=== PATIENT | female | born 1965 | race Caucasian/White ===

== ENCOUNTER → 2021-07-06 08:26 | Outpatient (BNVA) | payer MEDICARE, MEDICAID, SELFPAY | PROVIDERS: PCP Internal Medicine; Visit Provider Hospitalist | DX: J45.40 Moderate persistent asthma, uncomplicated (principal); J98.4 Other disorders of lung; G47.33 Obstructive sleep apnea (adult) (pediatric); R07.1 Chest pain on breathing | CPT/HCPCS: 99202 ==

== ENCOUNTER 2021-07-13 07:31 | Outpatient (REF) | payer MEDICARE, MEDICAID, SELFPAY ==
--- NOTE | ~2021-07-13 | CT_ITS ---
EXAMINATION: CT CHEST WITHOUT CONTRAST CLINICAL INFORMATION: Obstructive sleep apnea COMPARISON: None TECHNIQUE: Multidetector volumetric CT imaging of the chest was done. Axial MIP volume rendering provided. Sagittal and coronal reformatted images were obtained. This CT examination was performed using dose optimization techniques as appropriate, variously including the following: *Automated exposure control *Adjustment of mA and/or kV according to patient size (this includes techniques or standardized protocols for targeted exams where dose is matched to indication/reason for exam; i.e. 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 There is scarring or subsegmental atelectasis in the lateral right lower lobe. There is denser atelectasis or consolidation in the medial right lower lobe adjacent to the spine. There is focal bronchiectasis seen in this region as well. Superiorly there is a 1.2 x 1.9 cm cystic area questionable for cavity formation. This whole area measures approximately 5.2 x 2.2 cm in AP and transverse dimension and 7 cm in longitudinal dimension. Infectious, inflammatory and neoplastic processes should be considered. Comparison with old exams if available is recommended. Otherwise short-term follow-up exam following treatment should be considered. The lungs are otherwise clear. No pulmonary nodule is seen. MEDIASTINUM: There is a small calcification in the left lobe of the thyroid gland. The mediastinum is otherwise normal. PLEURA: There is no pleural effusion. No pleural mass or thickening. AXILLA: No lymphadenopathy. UPPER ABDOMEN: The liver is upper normal in size. The liver is low in attenuation suggestive of fatty infiltration. The gallbladder has been removed. There may be a tiny left renal stone. OSSEOUS STRUCTURES: There are degenerative changes of the spine. CT/CT chest wo con IMPRESSION: Consolidation or atelectasis in the medial segment of the right lower lobe, focal bronchiectasis and question superior cavity formation. Infectious, inflammatory and neoplastic processes should be considered. Comparison with old exams outside exams if available is recommended. Otherwise short-term chest CT follow-up following treatment would be recommended. Scarring or subsegmental atelectasis in the anterior segment of the right upper lobe and lateral segment of the right lower lobe. Fleischner guidelines were followed.
== END 2021-07-13 07:32 | disposition home or self-care (01) ==
LOC: HO.CT 07:31
PROVIDERS: Visit Provider Hospitalist
DX: R07.9 Chest pain, unspecified (principal); J98.4 Other disorders of lung; G47.33 Obstructive sleep apnea (adult) (pediatric)
CPT/HCPCS: 71250

== ENCOUNTER → 2021-07-27 08:57 | Outpatient (REF) | payer MEDICARE, MEDICAID, SELFPAY | LOC: HO.SL 08:57 | PROVIDERS: Visit Provider Hospitalist | DX: G47.33 Obstructive sleep apnea (adult) (pediatric) (principal); J98.4 Other disorders of lung; R07.9 Chest pain, unspecified | CPT/HCPCS: 95806 ==

== ENCOUNTER → 2021-09-02 08:51 | Outpatient (BNVA) | payer MEDICARE, MEDICAID, SELFPAY | PROVIDERS: PCP Internal Medicine; Visit Provider Hospitalist | DX: Z13.89 Encounter for screening for other disorder (principal) ==

== ENCOUNTER 2021-12-01 09:32 | Outpatient (REF) | payer MEDICARE, MEDICAID, SELFPAY ==
[2021-12-01 10:04] LABS: MANUAL DIFF FLAG NO
[2021-12-01 10:30] LABS: Basophils Absolute Auto 0.1 X10*3/uL (0.0-0.2); Eosinophils Absolute Auto 0.8 X10*3/uL (0.0-0.4); Eosinophils Percent Auto 11.6 % (0-4); Hematocrit 38.8 % (37.0-47.0); Imm Gran Abs Auto 0.02 X10*3/uL (0.00-0.03); Imm Gran Pct Auto 0.3 % (0.0-0.4); Lymphocytes Absolute Auto 1.9 X10*3/uL (1.2-4.9); Lymphocytes Percent Auto 26.2 % (20-40); Mean Corpuscular HGB Conc 33.5 g/dl (31.0-35.0); Mean Corpuscular Hemoglobin 26.1 pg (27.0-33.0); Mean Corpuscular Volume 77.8 fL (80.0-98.0); Mean Platelet Volume 12.2 fL (9.4-12.3); Monocytes Absolute Auto 0.6 X10*3/uL (0.1-1.2); Monocytes Percent Auto 7.8 % (2-11); Neutrophils Absolute Auto 3.8 x10*3/uL (2.0-8.3); Neutrophils Percent Auto 53.1 % (45-73); Platelet Count 188 X10*3/uL (160-400); Red Blood Count 4.99 X10*6/uL (4.20-5.50); Red Cell Distribution Width 14.5 % (11.0-16.0); White Blood Count 7.2 X10*3/uL (4.8-10.8)
[2021-12-01 11:03] LABS: B Type Natriuretic Peptide 39 pg/mL (<100)
[2021-12-01 11:25] LABS: Erythrocyte Sedimentation Rate 22 MM/HR (0-20)
[2021-12-03 14:31] LABS: IgA 301 mg/dL (47-310); IgG 1610 mg/dL (600-1640); IgM 91 mg/dL (50-300)
[2021-12-05 14:56] LABS: Immunoglobulin G Subclass 1 1088 mg/dL (382-929); Immunoglobulin G Subclass 2 147 mg/dL (241-700); Immunoglobulin G Subclass 3 106 mg/dL (22-178); Immunoglobulin G Subclass 4 30.4 mg/dL (4-86); Immunoglobulin G Total 1525 mg/dL (600-1640)
[2021-12-06 09:32] LABS: Anti Nuclear Antibody Screen NEGATIVE (NEGATIVE)
== END 2021-12-01 09:33 | disposition home or self-care (01) ==
LOC: HO.LAB 09:32
PROVIDERS: Visit Provider Hospitalist
DX: J45.40 Moderate persistent asthma, uncomplicated (principal); J98.4 Other disorders of lung; R07.1 Chest pain on breathing; G47.33 Obstructive sleep apnea (adult) (pediatric); Z79.899 Other long term (current) drug therapy
CPT/HCPCS: 36415; 82784; 82785; 83880; 85025; 85652; 86003; 86038; 86039; 99212

== ENCOUNTER 2022-04-21 10:55 | Outpatient (REF) | payer MEDICARE, MEDICAID, SELFPAY ==
--- NOTE | ~2022-04-21 | XR_ITS ---
EXAMINATION: XR CHEST CLINICAL INFORMATION: Back pain COMPARISON: Previous chest CT June 2021 TECHNIQUE: 2 views of the chest were obtained. FINDINGS: No significant abnormality is noted involving the heart, lungs, mediastinum, bony thorax or soft tissues. There are degenerative changes of the spine. XR/XR chest 2V IMPRESSION: Degenerative changes of the spine.
== END 2022-04-21 10:56 | disposition home or self-care (01) ==
LOC: HO.XRAY 10:55
PROVIDERS: Visit Provider Hospitalist
DX: M54.9 Dorsalgia, unspecified (principal); J98.4 Other disorders of lung; G47.33 Obstructive sleep apnea (adult) (pediatric); J45.40 Moderate persistent asthma, uncomplicated
CPT/HCPCS: 71046; 99212

== ENCOUNTER 2022-10-18 13:06 | Outpatient (REF) | payer OTHER, SELFPAY ==
--- NOTE | ~2022-10-18 | XR_ITS ---
EXAMINATION: XR THORACOLUMBAR SPINE CLINICAL INFORMATION: Dorsalgia. COMPARISON: Selected images of the chest CT of 07/13/2021 TECHNIQUE: 3 views of the thoracic spine; AP, lateral and swimmer's views were obtained. FINDINGS: Vertebral body heights and alignment are maintained. Mild narrowing of the intervertebral disc spaces is seen at multiple levels. Changes of diffuse idiopathic skeletal hyperostosis are noted. There is no evidence of suspicious lytic or blastic osseous lesions. Paraspinous soft tissues are unremarkable. Visualized lungs are clear. Post cholecystectomy surgical clips in the right upper abdominal quadrant are noted. XR/XR thoracic spine 2V IMPRESSION: No evidence of acute compression fracture or suspicious osseous lesion. Diffuse idiopathic skeletal hyperostosis.
== END 2022-10-18 13:07 | disposition home or self-care (01) ==
LOC: HO.XRAY 13:06
PROVIDERS: PCP Internal Medicine; Visit Provider Nurse Practitioner Family
DX: R07.89 Other chest pain (principal); J45.909 Unspecified asthma, uncomplicated; M54.9 Dorsalgia, unspecified; Z79.899 Other long term (current) drug therapy
CPT/HCPCS: 72070; 99212

== ENCOUNTER → 2022-11-22 09:03 | Outpatient (BNVA) | payer OTHER, MEDICAID, SELFPAY | PROVIDERS: Visit Provider Hospitalist | DX: J98.4 Other disorders of lung (principal); J45.40 Moderate persistent asthma, uncomplicated; G47.33 Obstructive sleep apnea (adult) (pediatric); M54.9 Dorsalgia, unspecified; B20 Human immunodeficiency virus [HIV] disease; Z79.84 Long term (current) use of oral hypoglycemic drugs; Z79.899 Other long term (current) drug therapy | CPT/HCPCS: 99212 ==

== ENCOUNTER 2023-01-09 09:06 | Outpatient (REF) | payer OTHER, SELFPAY ==
--- NOTE | ~2023-01-09 | CT_ITS ---
EXAMINATION: CT CHEST WITHOUT CONTRAST CLINICAL INFORMATION: Other disorder of lung COMPARISON: Previous chest x-ray April [address] June 2021 TECHNIQUE: Multidetector volumetric CT imaging of the chest was done. Axial MIP volume rendering provided. Sagittal and coronal reformatted images were obtained. This CT examination was performed using dose optimization techniques as appropriate, variously including the following: *Automated exposure control *Adjustment of mA and/or kV according to patient size (this includes techniques or standardized protocols for targeted exams where dose is matched to indication/reason for exam; i.e. extremities or head) *Use of iterative reconstruction technique DLP: 189 mGy-cm FINDINGS: LUNGS: There is a focal bronchiectasis seen in the posterior medial right lower lobe adjacent to the spine and surrounding consolidation. There is a superior cavitary component measuring 1 x 2.3 cm in transverse and AP dimension and 2.5 cm in longitudinal dimension that appears unchanged. There is question of solid component or focal wall thickening of the inferior wall of the cavity. The the superior cavitary component and question focal wall thickening or solid component inferiorly appears increased from previous June 2021 exam. There is bronchiectasis seen in the right lower lobe. There is scarring or chronic subsegmental atelectasis seen in the anterior right upper lobe and right lower lobe. The left lung is clear. MEDIASTINUM: Small stable left thyroid gland calcification. No imaging follow-up recommended. Normal mediastinum. CORONARY ARTERY CALCIFICATION: None visualized on this study. PLEURA: There is no pleural effusion. No pleural mass or thickening. AXILLA: No lymphadenopathy. UPPER ABDOMEN: Question mild fatty infiltration of the liver. Cholecystectomy. OSSEOUS STRUCTURES: Degenerative changes of the spine. CT/CT chest wo IV con IMPRESSION: Focal bronchiectasis and surrounding consolidation in the posterior medial right lower lobe adjacent to the spine. There is a superior cavitary component measuring 1 x 2.3 x 2.5 cm. There is question of solid component or focal wall thickening of the inferior wall of the cavity that appears increased from previous June 2021 exam. Otherwise this does not appear appreciably changed. Pulmonary sequestration, infectious/inflammatory process is favored over neoplastic process. Scarring or chronic subsegmental atelectasis in the anterior right upper lobe and right lower lobe. Fleischner guidelines were followed.
== END 2023-01-09 09:07 | disposition home or self-care (01) ==
LOC: HO.CT 09:06
PROVIDERS: PCP Internal Medicine; Visit Provider Hospitalist
DX: J98.4 Other disorders of lung (principal)
CPT/HCPCS: 71250

== ENCOUNTER 2023-03-14 10:35 | Outpatient (AMB) | payer OTHER, SELFPAY ==
[2023-03-14 10:56] VITALS: BP 120/70; PULSE 91; O2SAT 96; BMI 33.3
--- NOTE | 2023-03-14 10:56 | A.OFFVIS_ITS ---
Intake Vital Signs 03/14/23 10:56 Height 5 ft 4 in Weight 194 lb BMI 33.3 BP 120/70 Blood Pressure Location Lt brachial Position Sitting Pulse 91 Pulse Source Pulse Oximeter Pulse Oximetry (%) 96 Oxygen Delivery Method Room Air Intake Visit Reasons: asthma Slate Splitter Required: No Allergies sulfamethoxazole [From Bactrim] Allergy (Severe, Verified 03/14/23 10:58) Rash trimethoprim [From Bactrim] Allergy (Severe, Verified 03/14/23 10:58) Rash HPI HPI Comments History of Present Illness Details The patient is a 57-year-old woman with a known history of HIV who initially was diagnosed approximately about 8 years ago when she developed an 8 the finding illness. She was admitted with PCP. Subsequently after that she developed a cavitary lesion bronchoscopy specimens positive for aspergillosis. She was treated with antifungal therapy. However, she started developing right- sided pleuritic chest discomfort. The discomfort has been getting worse. She has been coughing up also more phlegm. It has been very uncomfortable for her. She has not been able to sleep because of the discomfort. Her last CT scan of the chest which was done at [facility] was back in April 2020 which was noted to have to cavitary lesions. In the meantime she continues on the antiviral therapy. Her HIV has been stable on the therapy. Still the possibility of a localized aspergilloma or chronic cavitary pulmonary aspergillosis are both in the differential. Therefore will repeat her CT scan of the chest with the plan of performing a bronchoscopy to further evaluate the area. And in the meantime she does have daytime drowsiness. The patient has been waking up with PT. Her daytime drowsiness has been getting worse. Her [place] score is 11/24. She does have episodes of waking up short of breath documented by her . The patient has gained weight. The patient needs to have a home sleep study. 12/01/2021 the patient is here for a pulmonary follow-up visit. Since we last spoke she started developing worsening cough with chest congestion. Moderate severity. Ultimately started developing worsening pleuritic discomfort on the right side. moderate severity. She did undergo a CT scan of the chest which we personally reviewed together she does have a cavitary lesion in the right lower lobe. Although we also looked at a CT scan from previous history from [facility]. It appears the cavities actually smaller in size. It does have a pleural component which could be resulting in the pleuritic discomfort. Explained to the patient that this cavity can be easily infected and ultimately resulted in discomfort. In view of the cavity being smaller will go ahead and treated with antibiotics to see if there is improvement. However, there was no significant improvement of her symptoms then a bronchoscopy may be warranted to assess for persistent or compromising organisms. in the meantime the patient continues to have daytime drowsiness. Her [place] score is 8/24. We did review her sleep study. It appears that she does have mild sleep apnea. Appears that is mainly when sleeping on her back. Therefore she will try positional therapy at this time. If the patient does not have any significant improvement with positional therapy then we can consider PAP therapy. The patient continues with respiratory therapy. Although, she continues to be symptomatic. She does require her short-acting beta agonist on a daily basis. Will go ahead and optimize respiratory therapy to Trelegy inhaler. I am hopeful that to triple therapy will be more effective for her. 04/21/2022 the patient is here for a pulmonary follow-up visit. The patient has been complaining of excruciating right-sided back pain. The patient almost went to the ER because it was so uncomfortable. There is no pleuritic component. The patient does have reproducible to back discomfort. We did review her CT scan of the chest that she had recently demonstrating is stable cavitary area in the medial aspect of her right lung. This is not in the distribution of her pain wound is extremely unlikely to be the cause of her significant back pain. It is likely musculoskeletal or neuropathic since the pain is reproducible upon palpation. She did see her primary care doctor. At this point I will treated for musculoskeletal discomfort. However, the patient needs to follow-up with primary care and continue to evaluate for other non pulmonary etiologies for her back pain. Based on the CT scan is reassuring that her previous large cavitary lesion has been slowly closing and now with some residual disease. The patient denies any cough denies any productive phlegm. She is breathing well without any complaints except for the back issues. 11/22/2022 the patient is here for pulmonary follow-up visit. She is overall doing better. The right-sided discomfort appears to be little better. Still uncomfortable. She did undergo chest x-rays and also spine x-rays to without any significant findings. Previous CT scans demonstrated a cavitary lesion. In view of the persistent symptoms will go ahead and request a CT scan of the chest. The patient is using her respiratory therapy with good effect. She still have wheezing at times. She is on optimize respiratory therapy therefore will continue her current regimen at this time. 03/14/2023 the patient is here for a pul monary follow-up visit. She was feeling well until recently she started developing again a worsening cough chest tightness and also right-sided chest his cane. The pain is moderate to severe. Significant pleuritic component. She did have a CT scan of the chest in December which I reviewed with her. It appears that the thick wall cavity is a little bit more filled then suggesting some growth. Is hard to know if the pain is related to that area or if the cough is related to that area at this time. Her HIV has been stable. Will plan to treated with antibiotics and also treat her asthma exacerbation with some prednisone. Will re-evaluate the cystic thick wall cavity area with a IV contrast CT scan to rule out sequestration. Will follow-up after her CT scan [facility] Medical History (Updated 10/18/22 @ 13:41 by Lindsay Borrego NP) Asthma-COPD overlap syndrome Asthma HIV (human immunodeficiency virus infection) Chest pain Cavitary lesion of lung RAMESH (obstructive sleep apnea) Social History (Updated 07/06/21 @ 08:37 by Rocío Wesley [facility]) Patient Tobacco Use Status: Never used Tobacco Review of Systems Const Reports daytime sleepiness, Reports fatigue, Reports snoring, Reports stops breathing during sleep and Reports weight gain Eyes Denies change in vision ENT Denies change in voice, Reports nasal congestion and Reports nasal discharge Card Denies palpitations and Reports dyspnea on exertion Resp Reports chest congestion, Reports cough, Denies hemoptysis, Reports pain on inspiration, Reports pain with cough, Reports dyspnea on exertion, Reports snoring and Reports wheezing GI Reports no additional complaints Musc Reports back pain Skin/Breast Denies rash Neuro Reports no additional complaints Endo Reports fatigue and Denies palpitations Aller/Immun Reports wheezing Physical Exam Vital Signs: Last Vital Signs Pulse 91 03/14/23 10:56 BP 120/70 03/14/23 10:56 Pulse Ox 96 03/14/23 10:56 Oxygen Delivery Method Room Air 03/14/23 10:56 BMI result Body Mass Index 33.3 Const General: alert Neck Neck: Yes normal visual inspection, Yes full ROM and Yes no lymphadenopathy Chest Chest palpation & inspection: normal inspection of the chest Resp Auscultation: wheezes and diminished lung sounds Cardio Rate: regular rate Rhythm: regular rhythm Heart sounds: S1 normal heart sound present and S2 normal heart sound present GI Palpation (GI): Soft to palpation and nontender Auscultation: normal bowel sounds General: Yes CVA tenderness Back/Spine/Pelvis Back: CVA tenderness, No erythema, No warmth, No sacral edema and back tenderness Skin General skin exam: rashes and/or lesions noted Assessment & Plan Assessment & Plan (1) Cavitary lesion of lung: Code(s): J98.4 - Other disorders of lung (2) RAMESH (obstructive sleep apnea): Code(s): G47.33 - Obstructive sleep apnea (adult) (pediatric) (3) Asthma: Code(s): J45.909 - Unspecified asthma, uncomplicated Qualifiers: Asthma complication type: uncomplicated Asthma persistence: persistent Asthma severity: moderate Qualified Code(s): J45.40 - Moderate persistent asthma, uncomplicated Plan start Augmentin Start Prednisone tylenol#3 for pain as needed positional therapy for mild RAMESH, COnsider PAP therapy if no better continue Trelegy short-acting beta agonist as needed pain control Repeat CT scan of the chest to reassess cavitary lesion and ongoing discomfort with IV contrast to r/o sequestration. If still abnormal will consider bronchoscopy follow-up in 2 months Orders: Orders CT chest w IV con 4 Weeks J98.4 - Other disorders of lung Complete Blood Count Auto Diff Today J98.4 - Other disorders of lung Erythrocyte Sedimentation Rate Today J98.4 - Other disorders of lung Basic Metabolic Panel Today J98.4 - Other disorders of lung Medications: New amoxicillin-pot clavulanate 875-125 mg 1 tab PO BID 10 days 20 tabs 0RF acetaminophen-codeine 300-15 mg 1 tab PO Q8H 10 days PRN 30 tabs 0RF pain prednisone PO daily; Take 3 tab daily x 4 days, then 2 tabs daily x 4 days, then 1 tab daily x 4 day 12 days 24 tabs 0RF Refilled lidocaine 5% (Lidoderm) leave on most painful area for up to 12 hrs 1 patch topical DAILY 30 days 30 ea 4RF B02.29 - Other postherpetic nervous system involvement Coding Level of Care Code Est Pt Level 4 (43675) Diagnoses Cavitary lesion of lung J98.4 RAMESH (obstructive sleep apnea) G47.33 Moderate persistent asthma without complication J45.40 Asthma complication type: uncomplicated Asthma persistence: persistent Asthma severity: moderate Time Spent (min) 17
== END 2023-03-14 11:16 | disposition home or self-care (01) ==
PROVIDERS: PCP Internal Medicine; Visit Provider Hospitalist
DX: J98.4 Other disorders of lung (principal); G47.33 Obstructive sleep apnea (adult) (pediatric); J45.40 Moderate persistent asthma, uncomplicated
CPT/HCPCS: 99214

== ENCOUNTER → 2023-03-14 10:35 | Outpatient (BNVA) | payer OTHER, SELFPAY | PROVIDERS: PCP Internal Medicine; Visit Provider Hospitalist | DX: J45.40 Moderate persistent asthma, uncomplicated (principal); J98.4 Other disorders of lung; G47.33 Obstructive sleep apnea (adult) (pediatric) | CPT/HCPCS: 99212 ==

== ENCOUNTER 2023-04-09 12:52 | Outpatient (REF) | payer OTHER, SELFPAY ==
--- NOTE | ~2023-04-09 | XR_ITS ---
EXAMINATION: XR cervical spine 3V CLINICAL INFORMATION: Pain COMPARISON: None TECHNIQUE: 4 views of the cervical spine were obtained. FINDINGS: The cervical spine is visualized to the level of C6-C7 on the lateral view. Reversal of the usual cervical spine lordosis centered at C5-C6 Vertebral body heights are maintained. Lateral masses of C1 are well aligned on C2. Visualized portion of the dens is intact. Moderate degenerative disc disease at C5-C6 and, manifested by loss of disc space height and anterior disc osteophyte complex is multilevel facet arthropathy.. No prevertebral soft tissue swelling. XR/XR cervical spine 3V IMPRESSION: Moderate spondylosis of the cervical spine, as above detailed, with reversal of the usual cervical spine lordosis centered at C5-C6.
--- NOTE | ~2023-04-09 | XR_ITS ---
EXAMINATION: XR LUMBOSACRAL SPINE CLINICAL INFORMATION: Reason for Exam M48.10 - Ankylosing hyperostosis [[place]], site unspecified COMPARISON: None TECHNIQUE: 3 views of the lumbar spine FINDINGS: 5 nonrib-bearing lumbar-type vertebral bodies. Vertebral body heights are maintained. Minimal grade 1 anterolisthesis of L4 on L5. Mild multilevel degenerative disc disease with loss of disc space height with facet arthropathy and anterior disc osteophyte complexes. Upper abdominal surgical clips. XR/XR lumbar spine 2-3V IMPRESSION: 1. Mild multilevel degenerative disc disease with loss of disc space height with facet arthropathy and anterior disc osteophyte complexes. 2. Minimal grade 1 anterolisthesis of L4 on L5.
== END 2023-04-09 12:53 | disposition home or self-care (01) ==
LOC: HO.XRAY 12:52
PROVIDERS: PCP Internal Medicine; Visit Provider Nurse Practitioner Family
DX: M48.10 Ankylosing hyperostosis [Forestier], site unspecified (principal); R13.10 Dysphagia, unspecified; M54.9 Dorsalgia, unspecified
CPT/HCPCS: 72040; 72100; 99202

== ENCOUNTER 2023-04-09 12:52 | Outpatient (AMB) | payer OTHER, SELFPAY ==
--- NOTE | 2023-04-09 12:57 | A.OFFVIS_ITS ---
Intake Vital Signs 04/09/23 13:01 Height 5 ft 4 in Weight 187 lb BMI 32.1 BP 120/72 Blood Pressure Location Rt brachial Position Sitting Pulse 68 Pulse Source Pulse Oximeter Pulse Oximetry (%) 98 Oxygen Delivery Method Room Air Intake Visit Reasons: Dosalgia, unspecified & Myalgia other site/conf.ir Intake Note: Pain today 0/10 Clerk Of Scales Required: No Accompanied by: Self / Same As Patient Allergies sulfamethoxazole [From Bactrim] Allergy (Severe, Verified 04/09/23 13:01) Rash trimethoprim [From Bactrim] Allergy (Severe, Verified 04/09/23 13:01) Rash HPI Dosalgia, unspecified & Myalgia other site/conf.ir HPI Details Patient is a pleasant 58 years old female with history of post herpetic neuralgia, RAMESH, HIV and aspergillosis on antiviral therapy, asthma, COPD presents today for initial evaluation of mid thoracic pain. She was referred to us by our Pulmonology providers. Patient reports no pain today and has been pain free for about one week. Patient reports Tylenol #3 short script and lidocaine patches have been helpful to her. Her main concern today is difficulty swallowing, worse at nighttime and swallowing her food or taking medication. She reports this has been going on for a while and that she takes medication for this which she cannot recall. Recent thoracic xray and CT scan of chest showed diffuse idiopathic skeletal hyperostosis (DISH) and degenerative changes of the spine. I have informed patient that DISH is a debilitating musculoskeletal disease with no cure at this time and can cause severe pain.?She denies being seen by Rheumatology before. Patient reports she was diagnosed with RAMESH last year but does not have CPAP machine. She will follow up with Pulmonology to get re-evaluation for this as this might help her dysphagia symptoms, especially at night time. Denies fever, weight loss, chest pain, rash, skin discoloration, shortness of breath, pain on inspiration or expiration, dizziness or productive cough, numbness, tingling, burning, weakness, gait imbalances, bladder or bowel dysfunction or saddle anesthesia. Location Mid thoracic pain, right side Duration Since 2013 Characteristics of symptom or complaint Intermittent aching and throbbing Aggravating or associated factors None Relieving factors Tylenol #3 and Lidocaine patches Treatment None PFSH Medical History Vitamin D deficiency Diabetes GERD (gastroesophageal reflux disease) Anemia Depression Asthma-COPD overlap syndrome Asthma HIV (human immunodeficiency virus infection) Chest pain Cavitary lesion of lung RAMESH (obstructive sleep apnea) Social History Patient Tobacco Use Status: Never used Tobacco Review of Systems Const All systems reviewed & are unremarkable except as noted in HPI and below Reports as per HPI, Denies body aches, Denies chills, Denies difficulty sleeping, Reports fatigue, Denies fever(s), Denies malaise, Denies night sweats, Reports snoring, Denies weakness and Denies weight loss ENT Reports dysphagia and Reports odynophagia Card Denies dyspnea on exertion Resp Denies cough, Denies hemoptysis, Denies pain on inspiration, Denies pain with cough, Denies dyspnea on exertion and Reports snoring GI Denies melena, Denies hematochezia, Denies constipation, Reports dysphagia, Reports heartburn, Denies fecal incontinence, Denies diarrhea, Denies nausea and Reports odynophagia Neuro Denies weakness Endo Reports fatigue Physical Exam Vital Signs: Last Vital Signs Pulse 68 04/09/23 13:01 BP 120/72 04/09/23 13:01 Pulse Ox 98 04/09/23 13:01 Oxygen Delivery Method Room Air 04/09/23 13:01 BMI result Body Mass Index 32.1 General: Appears afebrile. No acute distress. Alert and oriented. Mood and affect appropriate. Follows and participates in conversation appropriately. Respiratory effort is unlabored. No cough. Wears face mask. Able to transition from sit to stand unassisted. Ambulates with bilaterally normal heel strike and toe off. Back/Spine/Pelvis Other: No midline tenderness to palpation in the thoracic or lumbar spine. No paraspinal tenderness to palpation in the lumbar spine. Thoraco-lumbar extension and flexion does not reproduce pain. Cervical Spine: cervical ROM normal and No Cervical spine tenderness Thoracic/Lumbar Spine: thoracic and lumbar spine normal to inspection, No Thoracic/lumbar spine scar(s), thoraco-lumbar ROM normal, Lasegue's sign negative, straight leg raise negative bilaterally, No thoracic spinal tenderness and No lumbar spinal tenderness Pelvis: no buttock tenderness Sacroiliac joints: bilaterally nontender Results Reviewed Results Reviewed: CT/CT chest wo IV con 01/09/23 OSSEOUS STRUCTURES: Degenerative changes of the spine. IMPRESSION: Focal bronchiectasis and surrounding consolidation in the posterior medial right lower lobe adjacent to the spine. There is a superior cavitary component measuring 1 x 2.3 x 2.5 cm. There is question of solid component or focal wall thickening of the inferior wall of the cavity that appears increased from previous June 2021 exam. Otherwise this does not appear appreciably changed. Pulmonary sequestration, infectious/inflammatory process is favored over neoplastic process. Scarring or chronic subsegmental atelectasis in the anterior right upper lobe and right lower lobe. XR THORACOLUMBAR SPINE 10/18/22 CLINICAL INFORMATION: Dorsalgia. COMPARISON: Selected images of the chest CT of 07/13/2021 TECHNIQUE: 3 views of the thoracic spine; AP, lateral and swimmer's views were obtained. FINDINGS: Vertebral body heights and alignment are maintained. Mild narrowing of the intervertebral disc spaces is seen at multiple levels. Changes of diffuse idiopathic skeletal hyperostosis are noted. There is no evidence of suspicious lytic or blastic osseous lesions. Paraspinous soft tissues are unremarkable. Visualized lungs are clear. Post cholecystectomy surgical clips in the right upper abdominal quadrant are noted. IMPRESSION: No evidence of acute compression fracture or suspicious osseous lesion. Diffuse idiopathic skeletal hyperostosis. Assessment & Plan Assessment & Plan (1) DISH (diffuse idiopathic skeletal hyperostosis): Code(s): M48.10 - Ankylosing hyperostosis [[place]], site unspecified (2) Dysphagia: Code(s): R13.10 - Dysphagia, unspecified (3) Back pain: Code(s): M54.9 - Dorsalgia, unspecified Plan Patient presents today with unremarkable mid and lower back exam. Recent thoracic xray and CT scan of chest showed diffuse idiopathic skeletal hyperostosis (DISH) and degenerative changes of the spine. I have informed patient that DISH is a debilitating musculoskeletal disease with no cure at this time and can cause severe pain.?We will follow up on this with cervical and lower spine xrays. Consider Rheumatolody referral. Patient will continue to mon itor her symptoms and follow up with us when pain returns to discuss treatments. I encourage pateint to follow up with PCP and Pulmonology providers to further evaluate dysphagia and consider re-evaluation of RAMESH for potential CPAP machine. All questions and concerns have been answered and patient agreed with the plan. Follow up for xray results and sooner as needed. Orders: Orders XR lumbar spine 2-3V Today M48.10 - Ankylosing hyperostosis [[place]], site unspecified XR cervical spine 3V Today M48.10 - Ankylosing hyperostosis [[place]], site unspecified Coding Level of Care Code New Pt Level 4 (16117) Diagnoses DISH (diffuse idiopathic skeletal hyperostosis) M48.10 Dysphagia R13.10 Back pain M54.9
[2023-04-09 13:01] VITALS: BP 120/72; PULSE 68; O2SAT 98; BMI 32.1
== END 2023-04-09 13:57 | disposition home or self-care (01) ==
PROVIDERS: PCP Internal Medicine; Referring Provider Nurse Practitioner Family; Visit Provider Nurse Practitioner Family
DX: M48.10 Ankylosing hyperostosis [Forestier], site unspecified (principal); R13.10 Dysphagia, unspecified; M54.9 Dorsalgia, unspecified
CPT/HCPCS: 99204

== ENCOUNTER 2023-05-03 08:17 | Outpatient (REF) | payer OTHER, SELFPAY ==
--- NOTE | ~2023-05-03 | CT_ITS ---
EXAMINATION: CT CHEST WITH CONTRAST CLINICAL INFORMATION: Cavitary lesion of lung. COMPARISON: CT chest 01/09/2023. TECHNIQUE: Multidetector volumetric CT imaging of the chest was obtained after the administration of 65 mL of Omnipaque 350 intravenous contrast without immediate adverse reactions. Axial MIP volume rendering provided. Sagittal and coronal reformatted images were obtained. This CT examination was performed using dose optimization techniques as appropriate, variously including the following: *Automated exposure control *Adjustment of mA and/or kV according to patient size (this includes techniques or standardized protocols for targeted exams where dose is matched to indication/reason for exam; i.e. extremities or head) *Use of iterative reconstruction technique DLP: 129 mGy-cm FINDINGS: LUNGS: Again seen is bronchiectasis involving the right lower lobe with a superior cavitary component which has decreased in size since the prior study but has a new air-fluid level within it. Currently, this measures 2.5 x 1.3 cm whereas previously, this measured 2.9 x 1.5 cm (5:69 compare prior 5:215). The wall of the cavity is slightly thickened, unchanged from prior. An additional inferior paraspinal cavitary area is again noted which is unchanged measuring 2.0 x 1.1 cm (5:97 compare prior 5:311). No new lung masses are seen. MEDIASTINUM: The left lobe of the thyroid is mildly enlarged with nodules, some of which are calcified. Findings are unchanged when compared to the prior. The thoracic aorta appears unremarkable. Heart size is normal. No coronary calcium is seen. No mediastinal or hilar lymphadenopathy. PLEURA: There is no pleural effusion. AXILLA: No lymphadenopathy. UPPER ABDOMEN: Status post cholecystectomy. Hepatic steatosis is present. There is an unchanged 1 cm hypodensity seen just beneath the dome of the right hemidiaphragm that measures water density consistent with a cyst (5:106 compare prior 3:36). No adrenal masses are seen. OSSEOUS STRUCTURES: Mild degenerative changes are present in the spine. No bony destructive lesions. CT/CT chest w IV con IMPRESSION: 1. Right lower lobe bronchiectasis with cavitary lesions, as described above. The superior cavitary component has decreased in size but has a new air-fluid level within it. An additional inferior paraspinal cavitary area is unchanged. 2. Other incidental findings, as described above, including unchanged thyroid nodules, hepatic steatosis, cholecystectomy, and small benign hepatic cyst. Fleischner guidelines were followed.
[2023-05-03 08:44] LABS: MANUAL DIFF FLAG NO
[2023-05-03 09:04] LABS: Basophils Absolute Auto 0.1 X10*3/uL (0.0-0.2); Basophils Percent Auto 0.7 % (0-2); Eosinophils Absolute Auto 0.3 X10*3/uL (0.0-0.4); Eosinophils Percent Auto 3.8 % (0-4); Hematocrit 40.5 % (37.0-47.0); Hemoglobin 13.5 g/dl (12.0-16.0); Imm Gran Abs Auto 0.04 X10*3/uL (0.00-0.03); Imm Gran Pct Auto 0.5 % (0.0-0.4); Lymphocytes Absolute Auto 2.1 X10*3/uL (1.2-4.9); Lymphocytes Percent Auto 24.2 % (20-40); Mean Corpuscular HGB Conc 33.3 g/dl (31.0-35.0); Mean Corpuscular Hemoglobin 26.1 pg (27.0-33.0); Mean Corpuscular Volume 78.3 fL (80.0-98.0); Mean Platelet Volume 12.7 fL (9.4-12.3); Monocytes Absolute Auto 0.7 X10*3/uL (0.1-1.2); Monocytes Percent Auto 8.6 % (2-11); Neutrophils Absolute Auto 5.4 x10*3/uL (2.0-8.3); Neutrophils Percent Auto 62.2 % (45-73); Platelet Count 179 X10*3/uL (160-400); Red Blood Count 5.17 X10*6/uL (4.20-5.50); Red Cell Distribution Width 14.5 % (11.0-16.0); White Blood Count 8.6 X10*3/uL (4.8-10.8)
[2023-05-03 09:32] LABS: Anion Gap 11 (12-20); Blood Urea Nitrogen 13 mg/dL (9-16); Calcium 9.5 mg/dL (8.4-10.2); Carbon Dioxide 27 mmol/L (22-29); Chloride 105 mmol/L (96-108); Estimated Glomerular Filt Rate > 60; Glucose Random 179 mg/dL (60-115); Potassium 3.8 mmol/L (3.3-5.1); Sodium 139 mmol/L (135-145)
[2023-05-03 09:54] LABS: Erythrocyte Sedimentation Rate 28 MM/HR (0-20)
[2023-05-03] MEDS: iohexoL 350 MG/ML 100 ML INFUS..BTL IV (10:50)
== END 2023-05-03 08:18 | disposition home or self-care (01) ==
LOC: HO.CT 08:17
PROVIDERS: PCP Internal Medicine; Visit Provider Hospitalist
DX: J98.4 Other disorders of lung (principal)
CPT/HCPCS: 36415; 71260; 80048; 85025; 85652; Q9967

== ENCOUNTER 2024-08-25 14:31 | Outpatient (AMB) | payer OTHER, SELFPAY ==
[2024-08-25 14:34] VITALS: BP 140/82; PULSE 91; O2SAT 96; BMI 31.8
--- NOTE | 2024-08-25 14:34 | A.OFFVIS_ITS ---
Vital Signs 08/25/24 14:34 Height 5 ft 4 in Weight 185 lb 3.013 oz BMI 31.8 BP 140/82 H Blood Pressure Location Rt brachial Position Sitting Pulse 91 Pulse Source Pulse Oximeter Pulse Oximetry (%) 96 Oxygen Delivery Method Room Air Intake Visit Reasons: Asthma Allergies sulfamethoxazole [From Bactrim] Allergy (Severe, Verified 04/09/23 13:01) Rash trimethoprim [From Bactrim] Allergy (Severe, Verified 04/09/23 13:01) Rash HPI Comments Details: The patient is a 59-year-old woman with a known history of HIV who initially was diagnosed approximately about 8 years ago when she developed an 8 the finding illness. She was admitted with PCP. Subsequently after that she developed a cavitary lesion bronchoscopy specimens positive for aspergillosis. She was treated with antifungal therapy. However, she started developing right-sided pleuritic chest discomfort. The discomfort has been getting worse. She has been coughing up also more phlegm. It has been very uncomfortable for her. She has not been able to sleep because of the discomfort. Her last CT scan of the chest which was done at [facility] was back in April 2020 which was noted to have to cavitary lesions. In the meantime she continues on the antiviral therapy. Her HIV has been stable on the therapy. Still the possibility of a localized aspergilloma or chronic cavitary pulmonary aspergillosis are both in the differential. Therefore will repeat her CT scan of the chest with the plan of performing a bronchoscopy to further evaluate the area. And in the meantime she does have daytime drowsiness. The patient has been waking up with PT. Her daytime drowsiness has been getting worse. Her [place] score is 11/24. She does have episodes of waking up short of breath documented by her . The patient has gained weight. The patient needs to have a home sleep study. 12/01/2021 the patient is here for a pulmonary follow-up visit. Since we last spoke she started developing worsening cough with chest congestion. Moderate severity. Ultimately started developing worsening pleuritic discomfort on the right side. moderate severity. She did undergo a CT scan of the chest which we personally reviewed together she does have a cavitary lesion in the right lower lobe. Although we also looked at a CT scan from previous history from [facility]. It appears the cavities actually smaller in size. It does have a pleural component which could be resulting in the pleuritic discomfort. Explained to the patient that this cavity can be easily infected and ultimately resulted in discomfort. In view of the cavity being smaller will go ahead and treated with antibiotics to see if there is improvement. However, there was no significant improvement of her symptoms then a bronchoscopy may be warranted to assess for persistent or compromising organisms. in the meantime the patient continues to have daytime drowsiness. Her [place] score is 8/24. We did review her sleep study. It appears that she does have mild sleep apnea. Appears that is mainly when sleeping on her back. Therefore she will try positional therapy at this time. If the patient does not have any significant improvement with positional therapy then we can consider PAP therapy. The patient continues with respiratory therapy. Although, she continues to be symptomatic. She does require her short-acting beta agonist on a daily basis. Will go ahead and optimize respiratory therapy to Trelegy inhaler. I am hopeful that to triple therapy will be more effective for her. 04/21/2022 the patient is here for a pulmonary follow-up visit. The patient has been complaining of excruciating right-sided back pain. The patient almost went to the ER because it was so uncomfortable. There is no pleuritic component. The patient does have reproducible to back discomfort. We did review her CT scan of the chest that she had recently demonstrating is stable cavitary area in the medial aspect of her right lung. This is not in the distribution of her pain wound is extremely unlikely to be the cause of her significant back pain. It is likely musculoskeletal or neuropathic since the pain is reproducible upon palpation. She did see her primary care doctor. At this point I will treated for musculoskeletal discomfort. However, the patient needs to follow-up with primary care and continue to evaluate for other non pulmonary etiologies for her back pain. Based on the CT scan is reassuring that her previous large cavitary lesion has been slowly closing and now with some residual disease. The patient denies any cough denies any productive phlegm. She is breathing well without any complaints except for the back issues. 11/22/2022 the patient is here for pulmonary follow-up visit. She is overall doing better. The right-sided discomfort appears to be little better. Still uncomfortable. She did undergo chest x-rays and also spine x-rays to without any significant findings. Previous CT scans demonstrated a cavitary lesion. In view of the persistent symptoms will go ahead and request a CT scan of the c hest. The patient is using her respiratory therapy with good effect. She still have wheezing at times. She is on optimize respiratory therapy therefore will continue her current regimen at this time. 03/14/2023 the patient is here for a pulmonary follow-up visit. She was feeling well until recently she started developing again a worsening cough chest tightness and also right-sided chest his cane. The pain is moderate to severe. Significant pleuritic component. She did have a CT scan of the chest in December which I reviewed with her. It appears that the thick wall cavity is a little bit more filled then suggesting some growth. Is hard to know if the pain is related to that area or if the cough is related to that area at this time. Her HIV has been stable. Will plan to treated with antibiotics and also treat her asthma exacerbation with some prednisone. Will re-evaluate the cystic thick wall cavity area with a IV contrast CT scan to rule out sequestration. Will follow-up after her CT scan 08/25/2024 the patient is here for a pulmonary follow-up visit. The patient has been complaining of intermittent right-sided pain. Similar to the pleuritic pain that she has had for many years. But it seems to wax and wane. When it comes is very severe. She can barely breathe because of the severe pain. She did go to the ER back in June at [facility]. She apparently had a CT scan of the chest. I will request a report right now. The last CT scan we have available here is from 2022 where she had a CT scan demonstrating the cavitary lesion was present with some thickening rounded including the pleura likely resulting in the pleurisy. The patient has also gained some weight. She has diabetes now therefore we can not no longer give her high dose of the pre dnisone. She recently started on GLP1 receptor inhibitor. Hopefully this allows us to give a small dose of prednisone to help with the inflammation. Once we can review the CT scan we can see if additional interventions are required. [facility] Medical History Vitamin D deficiency Diabetes GERD (gastroesophageal reflux disease) Anemia Depression Asthma-COPD overlap syndrome Asthma HIV (human immunodeficiency virus infection) Chest pain Cavitary lesion of lung RAMESH (obstructive sleep apnea) Social History Patient Tobacco Use Status: Never used Tobacco Review of Systems Const Reports daytime sleepiness, Reports fatigue, Reports snoring, Reports stops breathing during sleep and Reports weight gain Eyes Denies change in vision ENT Denies change in voice, Reports nasal congestion and Reports nasal discharge Card Denies palpitations and Reports dyspnea on exertion Resp Reports chest congestion, Reports cough, Denies hemoptysis, Reports pain on inspiration, Reports pain with cough, Reports dyspnea on exertion, Reports snoring and Reports wheezing GI Reports no additional complaints Musc Reports back pain Skin/Breast Denies rash Neuro Reports no additional complaints Endo Reports fatigue and Denies palpitations Aller/Immun Reports wheezing Physical Exam Vital Signs: Last Vital Signs Pulse 91 08/25/24 14:34 BP 140/82 H 08/25/24 14:34 Pulse Ox 96 08/25/24 14:34 Oxygen Delivery Method Room Air 08/25/24 14:34 BMI result Body Mass Index 31.8 Const General: alert Neck Neck: Yes supple Chest Chest palpation & inspection: normal inspection of the chest Resp Auscultation: wheezes and diminished lung sounds Cardio Rate: regular rate Rhythm: regular rhythm Heart sounds: S1 normal heart sound present and S2 normal heart sound present GI Palpation (GI): Soft to palpation and nontender Auscultation: normal bowel sounds General: Yes CVA tenderness Back/Spine/Pelvis Back: CVA tenderness, No erythema, No warmth, No sacral edema and back tend erness Skin General skin exam: rashes and/or lesions noted Assessment & Plan Assessment & Plan (1) Cavitary lesion of lung: Code(s): J98.4 - Other disorders of lung Category: Medical (2) RAMESH (obstructive sleep apnea): Code(s): G47.33 - Obstructive sleep apnea (adult) (pediatric) Category: Medical (3) Asthma: Code(s): J45.909 - Unspecified asthma, uncomplicated Category: Medical Qualifiers: Asthma severity: moderate Asthma persistence: persistent Asthma complication type: uncomplicated Qualified Code(s): J45.40 - Moderate persistent asthma, uncomplicated Plan start Augmentin Start Prednisone tylenol#3 for pain as needed positional therapy for mild RAMESH, COnsider PAP therapy if no better continue Trelegy short-acting beta agonist as needed pain control Requesting CT chest from [facility], If still abnormal will consider bronchoscopy follow-up in 3-4 months Medications: New [id number]-[id number] 100-62.5-25 mcg (Trelegy Ellipta) 1 inh inhalation DAILY 60 ea 11RF 30 days J44.9 - Chronic obstructive pulmonary disease, unspecified acetaminophen-codeine 300-30 mg 1 tab PO Q8H PRN 30 tabs 0RF pain 10 days Changed From prednisone PO daily; Take 3 tab daily x 4 days, then 2 tabs daily x 4 days, then 1 tab daily x 4 day 12 days 24 tabs 0RF To prednisone PO daily; Take 2 tabs daily x 5 days, then 1 tab daily x 5 days 15 tabs 0RF 10 days From amoxicillin-pot clavulanate 875-125 mg 1 tab PO BID 10 days 20 tabs 0RF To amoxicillin-pot clavulanate 875-125 mg 1 tab PO BID 28 tabs 0RF 14 days Coding Level of Care Code Est Pt Level 4 (21386) Complex EM visit Add On G2211 Diagnoses Cavitary lesion of lung J98.4 RAMESH (obstructive sleep apnea) G47.33 Moderate persistent asthma without complication J45.40 Asthma severity: moderate Asthma persistence: persistent Asthma complication type: uncomplicated Time Spent (min) 18
--- OUTSIDE RECORDS SUMMARY | 2024-08-25 17:21 | XMS_ITS | Clinical Summary ---
Author Organization [facility] Address [address] [place] [address] Phone Care Team Providers Care Mining Captain Name Role Phone Simone Engle MD Primary Care Provider [phone] Allergies Active Allergy Reactions Criticality Noted Date Comments Sulfamethoxazole-Trimethoprim Rash 2024 Medications hydrocortisone 1 % topical cream Apply to affected area 2 times daily 15 g 5 05/24/19 26 Active naproxen (NAPROSYN) 500 mg tablet Take 1 tablet (500 mg total) by mouth 2 (two) times a day with meals for 15 days. 30 tablet 5 07/31/19 25 Encounters Date Type Department Care Team Description 07/15/2024 3:48 PM EST - 07/15/2024 7:58 PM EST Emergency [facility] Emergency [address] [place] [address] Pleuritic chest pain (Primary Dx); Pneumonia due to infectious organism, unspecified laterality, unspecified part of lung Discharge Disposition: Home or Self Care from Last 3 Months Medical History Medical History Date Comments HIV disease ([facility]) 05/29/2017 DX:HIV dis ease ([facility]) Asthma 06/17/2017 DX:Asthma Pleuritis 06/17/2017 DX:Pleuritis Pleurodynia 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/2017 DX:Pleurodynia Social History Tobacco Use Types Packs/Day Years Used Date Smoking Tobacco: Never Smokeless Tobacco: Never Alcohol Use Standard Drinks/Week Comments No 0 (1 standard drink = 0.6 oz pur e alcohol) Comments Unknown Sex and Gender Information Value Date Recorded Sex Assigned at Female 05/24/2024 11:16 AM EST Legal Sex Female 6:52 PM EST Gender Identity Female 05/24/2024 11:16 AM EST Sexual Orientation Straight 07/15/2024 4: 09 PM EST Obstetrics History Last Filed Vital Signs Vital Sign Reading Time Taken Comments Blood Pressure 134/79 07/15/2024 6:13 PM EST Pulse 60 07/15/2024 6:13 PM EST Temperature 36.6 ??C (97.9 ??F) 07/15/2024 6:13 PM ES T Respiratory Rate 18 07/15/2024 6:13 PM EST Oxygen Saturation 100% 07/15/2024 6:13 PM EST Inhaled Oxygen Concentration - - Weight 88.5 kg (195 lb) 07/15/2024 2:28 PM EST Height 167.6 cm (5' 6 ) 07/15/2024 2:28 PM EST Body Mass Index 31.47 07/15/2024 2:28 PM EST Plan of Treatment Health Maintenance Due Date Last Done Comments Breast Cancer Screening 1965 Diabetes: Annual Foot Exam 01/15/1976 Diabetes: Annual Retina Eye Exam 01/15/1976 MMR Vaccines (1 of 2 - Risk 2-dose series) 01/15/1984 Cervical Cancer Screening: Pap Smear 1987 Cholesterol Screening (Lipid Panel) 04/22/2022 Colorectal Cancer Screening: Colonoscopy 04/22/2022 Depression Screening 04/22/2022 Hepatitis C Screening 04/22/2022 Medicare Annual Wellness Visit 04/22/2022 Social Influencers of Health Screening 04/22/2022 Meningococcal ACWY Vaccine (3 - Risk 2-dose series) 06/18/2023 06/18/2018, 03/27/2018 COVID-19 Vaccine ( season) 2024 06/22/2021, 01/06/2021, 12/09/2020 Diabetes: Annual Urine Albumin-Creatinine Ratio (uACR) 05/24/2024 Diabetes: Blood Sugar Control Test (HGBA1C) 05/24/2024 Diabetes: Annual GFR (Glomerular Filtration Rate) 07/15/2025 07/15/2024, 05/24/2024 Hypertension/CHF/CAD Annual BMP Blood Test 07/15/2025 07/15/2024, 05/24/2024 DTaP,Tdap,and Td Vaccines (2 - Td or Tdap) 12/29/2025 12/30/2015 Pneumococcal Vaccine: 50+ Years (4 of 4 - PCV20 or PCV21) 06/22/2026 06/22/2021, 08/27/2015, 06/17/2015 Pneumococcal Vaccine: Pediatrics (0 to 5 Years) and At-Risk Patients (6 to 64 Years) (4 of 4 - PCV20 or PCV21) 06/22/2026 06/22/2021, 08/27/2015, 06/17/2015 Hepatitis A Vaccines Completed 09/11/2018, 11/28/2017, 10/18/2017, Additional history exists Hepatitis B Vaccines Completed 11/05/2018, 09/11/2018, 11/28/2017, Additional history exists Zoster Vaccines Completed 03/20/2022, 12/15/2021 Influenza Vaccine Completed 06/05/2024, , 06/07/2021, Additional history exists HIB Vaccines Aged Out No longer eligi ble based on patient's age to complete this topic HPV Vaccines Aged Out No longer eligi ble based on patient's age to complete this topic IPV Vaccines Aged Out No longer eligi ble based on patient's age to complete this topic Meningococcal B Vaccine Aged Out No l onger eligible based on patient's age to complete this topic RSV Immunization Patients Under 20 months Aged Out No longer eligible based on patient's age to complete this topic Varicella Vaccines Aged Out No longer eligible based on patient's age to complete this topic Procedures Procedure Name Priority Date/Time Associated Diagnosis Comments CT ANGIO CHEST WO AND/OR W CONTRAST STAT 07/15/2024 6:30 PM EST Pleuritic chest pain ECG 12-LEAD STAT 07/15/2024 6:04 PM EST RESPIRATORY VIRUS PANEL MOLECULAR STUDY STAT 07/15/2024 6:04 PM EST MAGNESIUM Add-On 07/15/2024 5:22 PM EST CBC WITH AUTO DIFFERENTIAL STAT 07/15/2024 5:22 PM EST B-TYPE NATRIURETIC PEPTIDE STAT 07/15/2024 5:22 PM EST TROPONIN I HIGH SENSITIVITY STAT 07/15/2024 5:22 PM EST BASIC METABOLIC PANEL STAT 07/15/2024 5:22 PM EST CBC AND DIFFERENTIAL STAT 07/15/2024 5:22 PM EST XR CHEST 2 VIEWS STAT 07/15/2024 3:55 PM EST from Last 3 Months Results * CT Angio Chest wo and/or w Contrast (07/15/2024 6:30 PM EST) Anatomical Region Laterality Modality Body Computed Tomogra phy 07/15/2024 7:03 PM EST Impressions 07/15/2024 7:03 PM EST Impression: 1. No pulmonary emboli. 2. No thoracic aortic aneurysm or dissection. 3. Bilateral perihilar ground-glass opacities may represent pulmonary edema or atypical pneumonia. Small area of consolidation in the posteromedial aspect of the right lower lobe may indicate atelectasis or pneumonia. This document has been electronically signed by: Rebekah Car MD on 07/15/2024 19:03:06 Narrative 07/15/2024 7:03 PM EST INDICATION: pleuritic pain, cough, prior PE not on AC Exam: CTA Chest with IV contrast. Procedure: Contrast was administered. Coronal and sagittal MIP reformats were performed. Comparison: None Clinical history: Pleuritic pain, cough, prior PE Findings: No pulmonary emboli. No thoracic aortic aneurysm or dissection. No hilar or mediastinal adenopathy. No pericardial fluid collection. No pneumothorax. No pleural fluid collection. Bilateral perihilar ground-glass opacities may represent pulmonary edema or atypical pneumonia. Small area of consolidation in the posteromedial aspect of the right lower lobe may indicate atelectasis or pneumonia. Visualized liver and spleen do not demonstrate any acute process. Prior cholecystectomy. No thoracic spine compression fractures. Procedure Note Rebekah Car MD - 07/15/2024 INDICATION: pleuritic pain, cough, prior PE not on AC Exam: CTA Chest with IV contrast. Procedure: Contrast was administered. Coronal and sagittal MIP reformats were performed. Comparison: None Clinical history: Pleuritic pain, cough, prior PE Findings: No pulmonary emboli. No thoracic aortic aneurysm or dissection. No hilar or mediastinal adenopathy. No pericardial fluid collection. No pneumothorax. No pleural fluid collection. Bilateral perihilar ground-glass opacities may represent pulmonary edema or atypical pneumonia. Small area of consolidation in the posteromedial aspect of the rightlower lobe may indicate atelectasis or pneumonia. Visualized liver and spleen do not demonstrate any acute process. Prior cholecystectomy. No thoracic spine compression fractures. IMPRESSION: Impression: 1. No pulmonary emboli. 2. No thoracic aortic aneurysm or dissection. 3. Bilateral perihilar ground-glass opacities may represent pulmonary edema or atypical pneumonia. Small area of consolidation in the posteromedial aspect of the right lower lobe may indicate atelectasis or pneumonia. This document has been electronically signed by: Rebekah Car MD on 07/15/2024 19:03:[address] PROCEDURES Final Result * ECG 12 lead (07/15/2024 6:04 PM EST) Ventricular Rate ECG 62 BPM GEMUSE Atrial Rate 62 BPM GEMUSE P-R Interval 142 ms GEMUSE QRS Duration 82 ms GEMUSE Q-T Interval 456 ms GEMUSE QTc 462 ms GEMUSE P Wave [place] 48 degrees GEMUSE R [place] 73 degrees GEMUSE T [place] 51 degrees GEMUSE ECG Interpretation Normal sinus rhythm Possible Left atrial enlargement Low voltage QRS When compared with ECG of 19-SEP-2020 00:58, No significant change was found Confirmed by VINCE GUTIERREZ ([id number]) on 07/16/2024 7:46:57 PM GEMUSE 07/15/2024 6:04 PM EST 07/16/2024 7:46 PM EST us Lisbet ARREDONDO ECG ORDERABLES Final Result GEMUSE * Respiratory virus panel molecular study (07/15/2024 6:04 PM EST) [facility] Adenovirus Detection by PCR Not Detected Not Detected LAB MICROBIOLOGY METHOD 07/15/2024 7:09 PM [facility] Influenza A PCR Not Detected Not Detected LAB MICROBIOLOGY METHOD 07/15/2024 7:09 PM [facility] Influenza B PCR Not Detected Not Detected LAB MICROBIOLOGY METHOD 07/15/2024 7:09 PM [facility] Coronavirus 229E Not Detected Not Detected LAB MICROBIOLOGY METHOD 07/15/2024 7:09 PM [facility] Coronavirus HKU1 Not Detected Not Detected LAB MICROBIOLOGY METHOD 07/15/2024 7:09 PM [facility] Coronavirus OC43 Not Detected Not Detected LAB MICROBIOLOGY METHOD 07/15/2024 7:09 PM [facility] Coronavirus NL63 Not Detected Not Detected LAB MICROBIOLOGY METHOD 07/15/2024 7:09 PM [facility] Parainfluenza Virus 1 Not Detected Not Detected LAB MICROBIOLOGY METHOD 07/15/2024 7:09 PM [facility] Parainfluenza Virus 2 Not Detected Not Detected LAB MICROBIOLOGY METHOD 07/15/2024 7:09 PM [facility] Parainfluenza Virus 3 Not Detected Not Detected LAB MICROBIOLOGY METHOD 07/15/2024 7:09 PM [facility] Parainfluenza Virus 4 Not Detected Not Detected LAB MICROBIOLOGY METHOD 07/15/2024 7:09 PM [facility] RSV PCR Not Detected Not Detected LAB MICROBIOLOGY METHOD 07/15/2024 7:09 PM [facility] Human Metapneumovirus A and B Not Detected Not Detected LAB MICROBIOLOGY METHOD 07/15/2024 7:09 PM [facility] Rhinovirus/Entero virus Not Detected Not Detected LAB MICROBIOLOGY METHOD 07/15/2024 7:09 PM [facility] Bordetella pertussis Not Detected Not Detected LAB MICROBIOLOGY METHOD 07/15/2024 7:09 PM EST [facility] Bordetella parapertussis Not Detected Not Detected LAB MICROBIOLOGY METHOD 07/15/2024 7:09 PM [facility] Mycoplasma pneumo by PCR Not Detected Not Detected LAB MICROBIOLOGY METHOD 07/15/2024 7:09 PM EST [facility] Chlamydia pneumoniae Not Detected Not Detected LAB MICROBIOLOGY METHOD 07/15/2024 7:09 PM EST [facility] SARS COV-2 Not Detected Not Detected LAB MICROBIOLOGY METHOD 07/15/2024 7:09 PM EST [facility] Swab Both anterior nares / Unknown Non-blood Collection / Unknown 07/15/2024 6:04 PM EST 07/15/2024 6:15 PM EST [facility] - 07/15/2024 7:09 PM EST Testing was performed using the [employer] Respiratory Pathogen PCR Assay. All results must be correlated with the clinical findings. Results should not be used as the sole basis for diagnosis. False Negative results may occur from the presence of sequence variants in the region targeted by the assay or the presence of inhibitors. Results may be affected by concurrent antiviral/antimicrobial therapy or levels of organisms that are below the limit of detection. Lisbet ARREDONDO LAB MICROBIOLOGY - GENERAL ORDER HILARIO Final Result [facility] [address] [place] [address], * Troponin I high sensitivity (07/15/2024 5:22 PM EST) Pathologist [facility] High Sensitivity Troponin I <3 <=54 ng/L LAB CHEMISTRY METHOD 07/15/2024 6:27 PM EST [facility] Blood Venous blood specimen / Unknown Venipuncture / Unknown 07/15/2024 5:22 PM EST 07/15/2024 5:36 PM EST Narrative [facility] - 07/15/2024 6:27 PM EST High levels of biotin in samples may falsely decrease hsTroponin values. ??Use caution when interpreting hsTroponin results in patients taking biotin who exhibit renal impairment (eGFR <60) or in patients taking more than 20 mg/day of biotin. us Lisbet ARREDONDO LAB BLOOD ORDERABLES Final Resul t [facility] [address] [place] [address], [place] [phone] * (ABNORMAL) CBC auto differential (07/15/2024 5:22 PM EST) WBC 9.1 4.8 - 10.8 K/mcL LAB HEMETOLOGY METHOD 07/15/2024 5:51 PM [facility] RBC 5.10(H) 3.80 - 4.80 M/mcL LAB HEMETOLOGY METHOD 07/15/2024 5:51 PM [facility] Hemoglobin 13.1 11.5 - 16.0 g/dL LAB HEMETOLOGY METHOD 07/15/2024 5:51 PM [facility] Hematocrit 40.8 35.0 - 47.0 % LAB HEMETOLOGY METHOD 07/15/2024 5:51 PM [facility] MCV 80.6 79.0 - 98.0 FL LAB HEMETOLOGY METHOD 07/15/2024 5:51 PM [facility] MCH 25.9(L) 27.0 - 32.0 pcg LAB HEMETOLOGY METHOD 07/15/2024 5:51 PM [facility] MCHC 32.1 32.0 - 37.0 g/dL LAB HEMETOLOGY METHOD 07/15/2024 5:51 PM [facility] RDW 14.7 11.0 - 15.0 % LAB HEMETOLOGY METHOD 07/15/2024 5:51 PM [facility] Platelets 220 130 - 400 K/mcL LAB HEMETOLOGY METHOD 07/15/2024 5:51 PM [facility] MPV 12.1(H) 7.0 - 11.0 FL LAB HEMETOLOGY METHOD 07/15/2024 5:51 PM [facility] NRBC 0.0 <1.0 % LAB HEMETOLOGY METHOD 07/15/2024 5:51 PM [facility] NRBC Absolute 0.00 <0.10 K/mcL LAB HEMETOLOGY METHOD 07/15/2024 5:51 PM [facility] Neutrophils Relative 55.8 % LAB HEMETOLOGY METHOD 07/15/2024 5:51 PM [facility] Lymphocytes Relative 32.3 % LAB HEMETOLOGY METHOD 07/15/2024 5:51 PM [facility] Monocytes Relative 7.3 % LAB HEMETOLOGY METHOD 07/15/2024 5:51 PM [facility] Eosinophils Relative 3.6 % LAB HEMETOLOGY METHOD 07/15/2024 5:51 PM [facility] Basophils Relative 0.7 % LAB HEMETOLOGY METHOD 07/15/2024 5:51 PM [facility] Immature Granulocytes Relative 0.3 % LAB HEMETOLOGY METHOD 07/15/2024 5:51 PM [facility] Neutrophils Absolute 5.10 1.50 - 7.00 K/mcL LAB HEMETOLOGY METHOD 07/15/2024 5:51 PM [facility] Lymphocytes Absolute 2.95 1.00 - 5.00 K/mcL LAB HEMETOLOGY METHOD 07/15/2024 5:51 PM [facility] Monocytes Absolute 0.67 0.20 - 1.00 K/mcL LAB HEMETOLOGY METHOD 07/15/2024 5:51 PM [facility] Eosinophils Absolute 0.33 0.00 - 0.50 K/[facility] LAB HEMETOLOGY METHOD 07/15/2024 5:51 PM EST [facility] Basophils Absolute 0.06 0.00 - 0.20 K/[facility] LAB HEMETOLOGY METHOD 07/15/2024 5:51 PM EST [facility] Immature Granulocytes Absolute 0.03 0.00 - 0.03 K/[facility] LAB HEMETOLOGY METHOD 07/15/2024 5:51 PM EST [facility] Blood Venous blood specimen / Unknown Venipuncture / Unknown 07/15/2024 5:22 PM EST 07/15/2024 5:36 PM EST Lisbet ARREDONDO LAB BLOOD ORDERABLES Final Resul t Performing Organization Address City/[facility]/ZIP Co de Phone Number [facility] [address] [place] [address], * B-type natriuretic peptide (07/15/2024 5:22 PM EST) BNP 28 <=100 pcg/mL LAB CHEMISTRY METHOD 07/15/2024 6:13 PM EST [facility] Blood Venous blood specimen / Unknown Venipuncture / Unknown 07/15/2024 5:22 PM EST 07/15/2024 5:36 PM EST Lisbet ARREDONDO LAB BLOOD ORDERABLES Final Resul t [facility] [address] [place] [address], * Magnesium (07/15/2024 5:22 PM EST) Magnesium 2.0 1.9 - 2.6 mg/dL LAB CHEMISTRY METHOD 07/15/2024 6:11 PM EST [facility] Blood Venous blood specimen / Unknown Venipuncture / Unknown 07/15/2024 5:22 PM EST 07/15/2024 5:36 PM EST us Lisbet ARREDONDO LAB BLOOD ORDERABLES Final Resul t [facility] [address] [place] [address], [place] [phone] * (ABNORMAL) Basic metabolic panel (07/15/2024 5:22 PM EST) Pathologist [facility] Sodium 140 133 - 145 mmol/L LAB CHEMISTRY METHOD 07/15/2024 6:04 PM [facility] Potassium 3.9 3.5 - 5.5 mmol/L LAB CHEMISTRY METHOD 07/15/2024 6:04 PM [facility] Chloride 107 96 - 110 mmol/L LAB CHEMISTRY METHOD 07/15/2024 6:04 PM [facility] CO2 26 21 - 32 mmol/L LAB CHEMISTRY METHOD 07/15/2024 6:04 PM [facility] Anion Gap 7 3 - 11 LAB CHEMISTRY METHOD 07/15/2024 6:04 PM [facility] Glucose 121(H) 70 - 100 mg/dL LAB CHEMISTRY METHOD 07/15/2024 6:04 PM [facility] BUN 13 5 - 25 mg/dL LAB CHEMISTRY METHOD 07/15/2024 6:04 PM [facility] Creatinine 0.59 0.50 - 1.10 mg/dL LAB CHEMISTRY METHOD 07/15/2024 6:04 PM [facility] eGFR 105 >=60 mL/min/1. 73m2 LAB CHEMISTRY METHOD 07/15/2024 6:04 PM [facility] Comment:Calculation based on the??Chronic Kidney Disease Epidemiology Collaboration (CKD-EPI) equation refit??without adjustment for race. BUN/Creatinine Ratio 22.0 LAB CHEMISTRY METHOD 07/15/2024 6:04 PM EST [facility] Calcium 9.6 8.5 - 10.5 mg/dL LAB CHEMISTRY METHOD 07/15/2024 6:04 PM EST [facility] Blood Venous blood specimen / Unknown Venipuncture / Unknown 07/15/2024 5:22 PM EST 07/15/2024 5:36 PM EST us Lisbet ARREDONDO LAB BLOOD ORDERABLES Final Resul t [facility] [address] [place] [address], [place] [phone] * XR Chest 2 Views (07/15/2024 3:55 PM EST) Anatomical Region Laterality Modality Body Radiographic Radha ging 07/15/2024 4:14 PM EST Impressions 07/15/2024 4:14 PM EST FINDINGS/IMPRESSION: Hypoventilatory examination with crowding of bronchovascular markings particularly at the bases. ??There is no consolidation or effusion. ??Mild degenerative osseous changes. ??Cholecystectomy clips. -------- FINAL REPORT -------- Dictated By: Richie Arthur Dictated Date: 07/15/2024 16:14 ET Assigned Physician: Richie Arthur Reviewed and Electronically Signed By: Richie Arthur Signed Date: 07/15/2024 16:14 ET Workstation ID: [id number] Transcribed By: Self Edit Transcribed Date: 07/15/2024 16:14 ET Narrative 07/15/2024 4:14 PM EST XR CHEST 2 VIEWS INDICATION: SOB, abn CXR, heart failure suspected TECHNIQUE: XR CHEST 2 VIEWS COMPARISON: No priors available. Procedure Note Richie Arthur MD - 07/15/2024 XR CHEST 2 VIEWS INDICATION: SOB, abn CXR, heart failure suspected TECHNIQUE: XR CHEST 2 VIEWS COMPARISON: No priors available. IMPRESSION: FINDINGS/IMPRESSION: Hypoventilatory examination with crowding ofbronchovascular markings particularly at the bases. There is noconsolidation or effusion. Mild degenerative osseous changes.Cholecystectomy clips. -------- FINAL REPORT -------- Dictated By: Richie Arthur Dictated Date: 07/15/2024 16:14 ET Assigned Physician: Richie Arthur Reviewed and Electronically Signed By: Richie Arthur Signed Date: 07/15/2024 16:14 ET Workstation ID: [id number] Transcribed By: Self Edit Transcribed Date: 07/15/2024 16:14 ET us Clifford Mulligan DO IMG XR PROCEDURES Final Res ult from Last 3 Months Insurance [facility] MEDICARE Member Subscriber Plan / Payer (Ef fective 2022-Present) Name:GormanBrandie Relation to Subscriber:Self Name:Brandie Gorman Payer ID:[id number] Group ID:[id number] Type:Not on file Address: [place] [address] [id number] Advance Directives Documents on File Type Date Recorded Patient Quality Control Checker Expl anation Health Care Decision (hx) 04/22/2018 AD TELLEZ DIRECTIVE Health Care Decision (hx) 04/22/2018 AD TELLEZ DIRECTIVE Health Care Decision (hx) 04/22/2018 AD TELLEZ DIRECTIVE Health Care Decision (hx) 04/22/2018 AD TELLEZ DIRECTIVE Health Care Decision (hx) 04/22/2018 AD TELLEZ DIRECTIVE Health Care Decision (hx) 10/30/2013 AD TELLEZ DIRECTIVE Health Care Decision (hx) 10/30/2013 AD TELLEZ DIRECTIVE Health Care Decision (hx) 10/30/2013 AD TELLEZ DIRECTIVE Health Care Decision (hx) 10/30/2013 AD TELLEZ DIRECTIVE Health Care Decision (hx) 10/30/2013 AD TELLEZ DIRECTIVE Health Care Decision (hx) 09/17/2013 AD TELLEZ DIRECTIVE Health Care Decision (hx) 09/17/2013 AD TELLEZ DIRECTIVE Health Care Decision (hx) 09/17/2013 AD TELLEZ DIRECTIVE Health Care Decision (hx) 09/17/2013 AD TELLEZ DIRECTIVE Health Care Decision (hx) 09/17/2013 AD TELLEZ DIRECTIVE Care Teams Mining Captain Relationship Specialty Start Date End Date Simone Engle MD [address] [place] [address] PCP - General Internal Medicine 10/05/17
== END 2024-08-25 14:54 | disposition home or self-care (01) ==
LOC: HO.HPS 14:32
PROVIDERS: PCP Internal Medicine; Visit Provider Hospitalist
DX: J98.4 Other disorders of lung (principal); G47.33 Obstructive sleep apnea (adult) (pediatric); J45.40 Moderate persistent asthma, uncomplicated
CPT/HCPCS: 99214; G2211

== ENCOUNTER → 2024-08-25 14:31 | Outpatient (BNVA) | payer OTHER, SELFPAY | PROVIDERS: PCP Internal Medicine; Visit Provider Hospitalist | DX: J45.40 Moderate persistent asthma, uncomplicated (principal); J44.9 Chronic obstructive pulmonary disease, unspecified; J98.4 Other disorders of lung; G47.33 Obstructive sleep apnea (adult) (pediatric) | CPT/HCPCS: 99212 ==

== ENCOUNTER 2025-03-05 08:07 | Outpatient (AMB) | payer OTHER, SELFPAY ==
--- OUTSIDE RECORDS SUMMARY | 2025-03-05 08:13 | XMS_ITS | Clinical Summary ---
Author Organization [facility] Address [address] [place] [address] Phone Care Team Providers Care Manager Flight Name Role Phone Simone Engle MD Primary Care Provider Allergies Active Allergy Reactions Criticality Noted Date Comments Sulfamethoxazole-Trimethoprim Rash 2024 Medications hydrocortisone 1 % topical cream Apply to affected area 2 times daily 15 g 05/24/2024 05/24/19 26 Active Encounters Date Type Department Care Team Description 01/12/2025 9:05 AM EDT - 01/12/2025 12:11 PM EDT Emergency [facility] Emergency [address] [place] [address] Acute left-sided thoracic back pain (Primary Dx); Acute UTI Discharge Disposition: Home or Self Care from Last 3 Months Medical History Medical History Date Comments HIV disease ([facility] V24, [facility] V28) 05/29/2017 DX:HIV disease ([facility]) Asthma 06/17/2017 DX:Asthma Pleuritis 06/17/2017 DX:Pleuritis Pleurodynia [...] Sign Reading Time Taken Comments Blood Pressure 130/78 01/12/2025 8:53 AM EDT Pulse 86 01/12/2025 8:53 AM EDT Temperature 36.9 C (98.4 F) 01/12/2025 8:53 AM EDT Respiratory Rate 16 01/12/2025 8:53 AM EDT Oxygen Saturation 96% 01/12/2025 8:53 AM EDT Inhaled Oxygen Concentration - - Weight 83.9 kg (185 lb) 01/12/2025 8:53 AM EDT Height 160 cm (5' 3 ) 01/12/2025 8:53 AM EDT Body Mass Index 32.77 01/12/2025 8:53 AM EDT Plan of Treatment Health Maintenance Due Date Last Done Comments Breast Cancer Screening 1966 Colorectal Cancer Screening: Colonoscopy 1966 Diabetes: Annual Foot Exam 01/15/1976 Diabetes: Annual Retina Eye Exam 01/15/1976 MMR Vaccines (1 of 2 - Risk 2-dose series) 01/15/1984 Cervical Cancer Screening: Pap Smear 1987 RSV Immunization Adult Patients (1 - Risk 50-74 years 1-dose series) 01/15/2016 Cholesterol Screening (Lipid Panel) 04/22/2022 Hepatitis C Screening 04/22/2022 Medicare Annual Wellness Visit 04/22/2022 Social Influencers of Health Screening 04/22/2022 Meningococcal ACWY Vaccine (3 - Risk 2-dose series) 06/18/2023 06/18/2018, 03/27/2018 Depression Screening 05/21/2024 Diabetes: Annual Urine Albumin-Creatinine Ratio (uACR) 05/24/2024 Diabetes: Blood Sugar Control Test (HGBA1C) 05/24/2024 COVID-19 Vaccine ( season) 2025 06/22/2021, 01/06/2021, 12/09/2020 Influenza Vaccine (#1) 2025 , 03/20/2022, 06/07/2021, Additional history exists DTaP,Tdap,and Td Vaccines (2 - Td or Tdap) 12/29/2025 12/30/2015 Diabetes: Annual GFR (Glomerular Filtration Rate) 01/12/2026 01/12/2025, 07/15/2024, 05/24/2024 Hypertension/CHF/CAD Annual BMP Blood Test 01/12/2026 01/12/2025, 07/15/2024, 05/24/2024 Pneumococcal Vaccine: 50+ Years (4 of 4 - PCV20 or PCV21) 06/22/2026 06/22/2021, 08/27/2015, 06/17/2015 Hepatitis A Vaccines Completed 09/11/2018, 11/28/2017, 10/18/2017, Additional history exists Hepatitis B Vaccines Completed 11/05/2018, 09/11/2018, 11/28/2017, Additional history exists Zoster Vaccines Completed 03/20/2022, 12/15/2021 HIB Vaccines Aged Out No longer eligi [...] Procedure Name Priority Date/Time Associated Diagnosis Comments CBC WITH AUTO DIFFERENTIAL STAT 01/12/2025 10:02 AM EDT CBC AND DIFFERENTIAL STAT 01/12/2025 10:02 AM EDT COMPREHENSIVE METABOLIC PANEL STAT 01/12/2025 10:[address] ABDOMEN PELVIS WO CONTRAST STAT 01/12/2025 9:46 AM EDT DICKSON URINE CULTURE TUBE STAT 01/12/2025 9:24 AM EDT URINALYSIS WITH REFLEX MICROSCOPIC AND CULTURE STAT 01/12/2025 9:24 AM EDT URINALYSIS WITH REFLEX MICROSCOPIC AND CULTURE STAT 01/12/2025 9:24 AM EDT CULTURE URINE STAT 01/12/2025 9:24 AM EDT from Last 3 Months Results * (ABNORMAL) CBC auto differential (01/12/2025 10:02 AM EDT) WBC 7.6 4.8 - 10.8 K/mcL LAB HEMETOLOGY METHOD 01/12/2025 11:07 AM [facility] RBC 4.80 3.80 - 4.80 M/mcL LAB HEMETOLOGY METHOD 01/12/2025 11:07 AM [facility] Hemoglobin 12.5 11.5 - 16.0 g/dL LAB HEMETOLOGY METHOD 01/12/2025 11:07 AM [facility] Hematocrit 38.1 35.0 - 47.0 % LAB HEMETOLOGY METHOD 01/12/2025 11:07 AM [facility] MCV 78.9(L) 79.0 - 98.0 FL LAB HEMETOLOGY METHOD 01/12/2025 11:07 AM [facility] MCH 25.9(L) 27.0 - 32.0 pcg LAB HEMETOLOGY METHOD 01/12/2025 11:07 AM [facility] MCHC 32.8 32.0 - 37.0 g/dL LAB HEMETOLOGY METHOD 01/12/2025 11:07 AM [facility] RDW 14.6 11.0 - 15.0 % LAB HEMETOLOGY METHOD 01/12/2025 11:07 AM [facility] Platelets 203 130 - 400 K/mcL LAB HEMETOLOGY METHOD 01/12/2025 11:07 AM [facility] MPV 12.5(H) 7.0 - 11.0 FL LAB HEMETOLOGY METHOD 01/12/2025 11:07 AM [facility] NRBC 0.0 <1.0 % LAB HEMETOLOGY METHOD 01/12/2025 11:07 AM [facility] NRBC Absolute 0.00 <0.10 K/mcL LAB HEMETOLOGY METHOD 01/12/2025 11:07 AM [facility] Neutrophils Relative 53.0 % LAB HEMETOLOGY METHOD 01/12/2025 11:07 AM [facility] Lymphocytes Relative 25.1 % LAB HEMETOLOGY METHOD 01/12/2025 11:07 AM [facility] Monocytes Relative 8.5 % LAB HEMETOLOGY METHOD 01/12/2025 11:07 AM [facility] Eosinophils Relative 12.3 % LAB HEMETOLOGY METHOD 01/12/2025 11:07 AM [facility] Basophils Relative 0.7 % LAB HEMETOLOGY METHOD 01/12/2025 11:07 AM [facility] Immature Granulocytes Relative 0.4 % LAB HEMETOLOGY METHOD 01/12/2025 11:07 AM [facility] Neutrophils Absolute 4.01 1.50 - 7.00 K/mcL LAB HEMETOLOGY METHOD 01/12/2025 11:07 AM [facility] Lymphocytes Absolute 1.90 1.00 - 5.00 K/mcL LAB HEMETOLOGY METHOD 01/12/2025 11:07 AM [facility] Monocytes Absolute 0.64 0.20 - 1.00 K/mcL LAB HEMETOLOGY METHOD 01/12/2025 11:07 AM [facility] Eosinophils Absolute 0.93(H) 0.00 - 0.50 K/mcL LAB HEMETOLOGY METHOD 01/12/2025 11:07 AM [facility] Basophils Absolute 0.05 0.00 - 0.20 K/mcL LAB HEMETOLOGY METHOD 01/12/2025 11:07 AM [facility] Immature Granulocytes Absolute 0.03 0.00 - 0.03 K/mcL LAB HEMETOLOGY METHOD 01/12/2025 11:07 AM EDT [facility] Blood Venous blood specimen / Unknown Venipuncture / Unknown 01/12/2025 10:02 AM EDT 01/12/2025 10:58 AM EDT us Sophia ARREDONDO LAB BLOOD ORDERABLES Fin al Result [facility] [address] [place] [address], * (ABNORMAL) Comprehensive Metabolic Panel (CMP) (01/12/2025 10:02 AM EDT) Sodium 140 133 - 145 mmol/L LAB CHEMISTRY METHOD 01/12/2025 11:23 AM [facility] Potassium 4.1 3.5 - 5.5 mmol/L LAB CHEMISTRY METHOD 01/12/2025 11:23 AM [facility] Chloride 107 96 - 110 mmol/L LAB CHEMISTRY METHOD 01/12/2025 11:23 AM [facility] CO2 27 21 - 32 mmol/L LAB CHEMISTRY METHOD 01/12/2025 11:23 AM [facility] Anion Gap 6 3 - 11 LAB CHEMISTRY METHOD 01/12/2025 11:23 AM [facility] Glucose 120(H) 70 - 100 mg/dL LAB CHEMISTRY METHOD 01/12/2025 11:23 AM [facility] BUN 9 5 - 25 mg/dL LAB CHEMISTRY METHOD 01/12/2025 11:23 AM [facility] Creatinine 0.63 0.50 - 1.10 mg/dL LAB CHEMISTRY METHOD 01/12/2025 11:23 AM [facility] eGFR 103 >=60 mL/min/1. 73m2 LAB CHEMISTRY METHOD 01/12/2025 11:23 AM [facility] Comment:Calculation based on the Chronic Kidney Disease Epidemiology Collaboration (CKD-EPI) equation refit without adjustment for race. BUN/Creatinine Ratio 14.3 LAB CHEMISTRY METHOD 01/12/2025 11:23 AM [facility] Calcium 8.9 8.5 - 10.5 mg/dL LAB CHEMISTRY METHOD 01/12/2025 11:23 AM [facility] AST (SGOT) 27 10 - 42 unit/L LAB CHEMISTRY METHOD 01/12/2025 11:23 AM [facility] ALT (SGPT) 30 10 - 60 unit/L LAB CHEMISTRY METHOD 01/12/2025 11:23 AM [facility] Alkaline Phosphatase 49 42 - 121 unit/L LAB CHEMISTRY METHOD 01/12/2025 11:23 AM [facility] Total Protein 7.0 6.0 - 8.0 g/dL LAB CHEMISTRY METHOD 01/12/2025 11:23 AM [facility] Albumin 3.5 3.2 - 5.0 g/dL LAB CHEMISTRY METHOD 01/12/2025 11:23 AM [facility] Total Bilirubin 0.4 0.0 - 1.4 mg/dL LAB CHEMISTRY METHOD 01/12/2025 11:23 AM [facility] Blood Venous blood specimen / Unknown Venipuncture / Unknown 01/12/2025 10:02 AM EDT 01/12/2025 10:58 AM EDT us Sophia ARREDONDO LAB BLOOD ORDERABLES Fin al Result [facility] [address] [place] [address], * CT Abdomen Pelvis wo Contrast (01/12/2025 9:46 AM EDT) Anatomical Region Laterality Modality Body Computed Tomogra phy 01/12/2025 9:47 AM EDT Impressions 01/12/2025 9:54 AM EDT No renal collecting system calculus. No acute findings in the abdomen and pelvis. -------- FINAL REPORT -------- Dictated By: Serge Jones Dictated Date: 01/12/2025 09:47 ET Assigned Physician: Serge Jones Reviewed and Electronically Signed By: Serge Jones Signed Date: 01/12/2025 09:54 ET Workstation ID: [id number] Transcribed By: Self Edit Transcribed Date: 01/12/2025 09:47 ET Narrative 01/12/2025 9:54 AM EDT PROCEDURE: CT of the abdomen and pelvis without intravenous contrast. HISTORY: Flank pain, kidney stone suspected. COMPARISON: 10/09/2013. TECHNIQUE: Noncontrast CT of the abdomen and pelvis with coronal and sagittal reformats. Dose length product: 1136 mGy-cm. FINDINGS: Lung bases: Scarring and/or atelectasis in the right lower lobe, some associated with adjacent vertebral osteophytes. Cardiac: Normal. Liver: Limited evaluation without intravenous contrast. There is a small low-attenuation lesion at the dome, likely a cyst. Biliary: Cholecystectomy. Pancreas: Limited evaluation without intravenous contrast. Mild generalized parenchymal atrophy. Spleen: Limited evaluation without intravenous contrast. No visible abnormality. Adrenal glands: Normal. Kidneys: Limited evaluation without intravenous contrast. Lower interpolar left renal cortical cyst. Normal appearance of the ureters. Retroperitoneum: No mass or adenopathy. Abdominal vasculature: Minimal atherosclerotic calcification. Bowel/mesentery: No obstruction or adenopathy. No mass or ascites. Mild sigmoid diverticulosis. Normal appendix. Abdominal wall: Small fat-containing paraumbilical hernia. Pelvic nodes: No adenopathy. Pelvic organs: Assessment of urinary bladder limited by underdistention. No visible abnormality. Bones: Mild degenerative changes of the spine. Procedure Note Serge Jones MD - 01/12/2025 PROCEDURE: CT of the abdomen and pelvis without intravenous contrast. HISTORY: Flank pain, kidney stone suspected. COMPARISON: 10/09/2013. TECHNIQUE: Noncontrast CT of the abdomen and pelvis with coronal andsagittal reformats. Dose length product: 1136 mGy-cm. FINDINGS: Lung bases: Scarring and/or atelectasis in the right lower lobe, someassociated with adjacent vertebral osteophytes. Cardiac: Normal. Liver: Limited evaluation without intravenous contrast. There is a smalllow-attenuation lesion at the dome, likely a cyst. Biliary: Cholecystectomy. Pancreas: Limited evaluation without intravenous contrast. Mildgeneralized parenchymal atrophy. Spleen: Limited evaluation without intravenous contrast. No visibleabnormality. Adrenal glands: Normal. Kidneys: Limited evaluation without intravenous contrast. Lowerinterpolar left renal cortical cyst. Normal appearance of the ureters. Retroperitoneum: No mass or adenopathy. Abdominal vasculature: Minimal atherosclerotic calcification. Bowel/mesentery: No obstruction or adenopathy. No mass or ascites. Mildsigmoid diverticulosis. Normal appendix. Abdominal wall: Small fat-containing paraumbilical hernia. Pelvic nodes: No adenopathy. Pelvic organs: Assessment of urinary bladder limited by underdistention.No visible abnormality. Bones: Mild degenerative changes of the spine. IMPRESSION: No renal collecting system calculus. No acute findings in the abdomen andpelvis. -------- FINAL REPORT -------- Dictated By: Serge Jones Dictated Date: 01/12/2025 09:47 ET Assigned Physician: Serge Jones Reviewed and Electronically Signed By: Serge Jones Signed Date: 01/12/2025 09:54 ET Workstation ID: [id number] Transcribed By: Self Edit Transcribed Date: 01/12/2025 09:47 ET Sophia ARREDONDO IM CT PROCEDURES Final Result * (ABNORMAL) Urinalysis with reflex microscopic and culture (01/12/2025 9:24 AM EDT) Specific [place] Urine 1.017 1.003 - 1.030 LAB URINALYSIS - AUTOMATED METHOD 01/12/2025 10:07 AM EDT [facility] pH, Urine 5.5 5.0 - 8.0 pH LAB URINALYSIS - AUTOMATED METHOD 01/12/2025 10:07 AM [facility] Leukocytes, Urine Moderate(A) Negative LAB URINALYSIS - AUTOMATED METHOD 01/12/2025 10:07 AM [facility] Nitrite, Urine Negative Negative LAB URINALYSIS - AUTOMATED METHOD 01/12/2025 10:07 AM [facility] Protein, Urine 30(A) <=Trace mg/dL LAB URINALYSIS - AUTOMATED METHOD 01/12/2025 10:07 AM [facility] Glucose, Urine Negative Negative mg/dL LAB URINALYSIS - AUTOMATED METHOD 01/12/2025 10:07 AM [facility] Ketones, Urine Trace(A) Negative mg/dL LAB URINALYSIS - AUTOMATED METHOD 01/12/2025 10:07 AM [facility] Urobilinogen , Urine 0.2 0.2 - 1.0 mg/dL LAB URINALYSIS - AUTOMATED METHOD 01/12/2025 10:07 AM [facility] Bilirubin, Urine Negative Negative LAB URINALYSIS - AUTOMATED METHOD 01/12/2025 10:07 AM [facility] Blood, Urine Negative Negative LAB URINALYSIS - AUTOMATED METHOD 01/12/2025 10:07 AM [facility] RBC, Urine 1.9 0 - 4 /HPF LAB URINALYSIS - AUTOMATED METHOD 01/12/2025 10:07 AM [facility] WBC, Urine 39.2(H) 0 - 4 /HPF LAB URINALYSIS - AUTOMATED METHOD 01/12/2025 10:07 AM [facility] Squamous Epithelial, Urine 97(H) 0 - 60 /LPF LAB URINALYSIS - AUTOMATED METHOD 01/12/2025 10:07 AM [facility] Bacteria, Urine Few(A) Negative /HPF LAB URINALYSIS - AUTOMATED METHOD 01/12/2025 10:07 AM EDT [facility] Hyaline Casts, Urine 34.9(H) 0 - 3 /LPF LAB URINALYSIS - AUTOMATED METHOD 01/12/2025 10:07 AM EDT [facility] Mucus, Urine Moderate None /HPF LAB URINALYSIS - AUTOMATED METHOD 01/12/2025 10:07 AM EDT [facility] Urine Urine specimen obtained by clean catch procedure / Unknown Non-blood Collection / Unknown 01/12/2025 9:24 AM EDT 01/12/2025 9:52 AM EDT Sophia ARREDONDO LAB URINE ORDERABLES Fin al Result Performing Organization Address [facility]/ZIP Co de Phone Number [facility] [address] [place] [address], [place] [phone] * D[place] urine culture tube (01/12/2025 9:24 AM EDT) Extra Tube Hold for add-ons. 01/12/2025 11:01 AM EDT [facility] Comment:Auto resulted. Urine Urine specimen obtained by clean catch procedure / Unknown Non-blood Collection / Unknown 01/12/2025 9:24 AM EDT 01/12/2025 9:52 AM EDT Sophia ARREDONDO LAB URINE ORDERABLES Fin al Result Performing Organization Address City/[facility]/ZIP Co de Phone Number [facility] [address] [place] [address], [place] [phone] * Culture urine (01/12/2025 9:24 AM EDT) Culture, Urine >100,000 CFU/mL Mixed bacterial morphotypes present suggestive of possible contamination during collection. Suggest appropriate recollection if clinically indicated. 2025 10:42 AM EDT [facility] Urine Urine specimen obtained by clean catch procedure / Unknown Non-blood Collection / Unknown 01/12/2025 9:24 AM EDT 01/12/2025 10:07 AM EDT us Sophia ARREDONDO LAB MICROBIOLOGY - GENER AL ORDERABLES Final Result [facility] [address] [place] [address], from Last 3 Months Insurance [facility] MEDIC[facility] Member Subscriber Plan / Payer (Ef fective 2022-Present) Name:DONNA DERAS Relation to Subscriber:Self Name:Donna Deras Payer ID:[id number] Group ID:[id number] Type:Not on file Address: [place] [address] [address] [address] [id number] Advance Directives Documents on File Type Date Recorded Patient Shipping Clerk Expl anation Health Care Decision (hx) 04/22/2018 [...] TELLEZ DIRECTIVE Health Care Decision (hx) 09/17/2013 MANISH TELLEZ DIRECTIVE Care Teams Manager Flight Relationship Specialty Start Date End Date Simone Engle MD [address] [place] [address] PCP - General Internal Medicine 10/05/17
[2025-03-05 08:25] VITALS: BP 110/56; PULSE 65; O2SAT 98; BMI 29.3
--- NOTE | 2025-03-05 08:25 | A.OFFVIS_ITS ---
Vital Signs 03/05/25 08:25 Height 5 ft 4 in Weight 170 lb 13.732 oz BMI 29.3 BP 110/56 L Blood Pressure Location Lt brachial Position Sitting Pulse 65 Pulse Source Pulse Oximeter Pulse Oximetry (%) 98 Oxygen Delivery Method Room Air Intake Visit Reasons: asthma Accompanied by: Self / Same As Patient Allergies sulfamethoxazole (From Bactrim) Allergy (Severe, Verified 03/05/25 08:28) Rash trimethoprim (From Bactrim) Allergy (Severe, Verified 03/05/25 08:28) Rash HPI Comments Details: The patient is a 60-year-old woman with a known history of HIV who initially was diagnosed approximately about 8 years ago when she developed an 8 the finding illness. She was admitted with PCP. Subsequently after that she developed a cavitary lesion bronchoscopy specimens positive for aspergillosis. She was treated with antifungal therapy. However, she started developing right-sided pleuritic chest discomfort. The discomfort has been getting worse. She has been coughing up also more phlegm. It has been very uncomfortable for her. She has not been able to sleep because of the discomfort. Her last CT scan of the chest which was done at [facility] was back in April 2020 which was noted to have to cavitary lesions. In the meantime she continues on the antiviral therapy. Her HIV has been stable on the therapy. Still the possibility of a localized aspergilloma or chronic cavitary pulmonary aspergillosis are both in the differential. Therefore will repeat her CT scan of the chest with the plan of performing a bronchoscopy to further evaluate the area. And in the meantime she does have daytime drowsiness. The patient has been waking up with PT. Her daytime drowsiness has been getting worse. Her [place] score is 11/24. She does have episodes of waking up short of breath documented by her . The patient has gained weight. The patient needs to have a home sleep study. 12/01/2021 the patient is here for a pulmonary follow-up visit. Since we last spoke she started developing worsening cough with chest congestion. Moderate severity. Ultimately started developing worsening pleuritic discomfort on the right side. moderate severity. She did undergo a CT scan of the chest which we personally reviewed together she does have a cavitary lesion in the right lower lobe. Although we also looked at a CT scan from previous history from [facility]. It appears the cavities actually smaller in size. It does have a pleural component which could be resulting in the pleuritic discomfort. Explained to the patient that this cavity can be easily infected and ultimately resulted in discomfort. In view of the cavity being smaller will go ahead and treated with antibiotics to see if there is improvement. However, there was no significant improvement of her symptoms then a bronchoscopy may be warranted to assess for persistent or compromising organisms. in the meantime the patient continues to have daytime drowsiness. Her Rensselaer score is 8/24. We did review her sleep study. It appears that she does have mild sleep apnea. Appears that is mainly when sleeping on her back. Therefore she will try positional therapy at this time. If the patient does not have any significant improvement with positional therapy then we can consider PAP therapy. The patient continues with respiratory therapy. Although, she continues to be symptomatic. She does require her short-acting beta agonist on a daily basis. Will go ahead and optimize respiratory therapy to Trelegy inhaler. I am hopeful that to triple therapy will be more effective for her. 04/21/2022 the patient is here for a pulmonary follow-up visit. The patient has been complaining of excruciating right-sided back pain. The patient almost went to the ER because it was so uncomfortable. There is no pleuritic component. The patient does have reproducible to back discomfort. We did review her CT scan of the chest that she had recently demonstrating is stable cavitary area in the medial aspect of her right lung. This is not in the distribution of her pain wound is extremely unlikely to be the cause of her significant back pain. It is likely musculoskeletal or neuropathic since the pain is reproducible upon palpation. She did see her primary care doctor. At this point I will treated for musculoskeletal discomfort. However, the patient needs to follow-up with primary care and continue to evaluate for other non pulmonary etiologies for her back pain. Based on the CT scan is reassuring that her previous large cavitary lesion has been slowly closing and now with some residual disease. The patient denies any cough denies any productive phlegm. S he is breathing well without any complaints except for the back issues. 11/22/2022 the patient is here for pulmonary follow-up visit. She is overall doing better. The right-sided discomfort appears to be little better. Still uncomfortable. She did undergo chest x-rays and also spine x-rays to without any significant findings. Previous CT scans demonstrated a cavitary lesion. In view of the persistent symptoms will go ahead and request a CT scan of the chest. The patient is using her respiratory therapy with good effect. She still have wheezing at times. She is on optimize respiratory therapy therefore will continue her current regimen at this time. 03/14/2023 the patient is here for a pulmonary follow-up visit. She was feeling well until recently she started developing again a worsening cough chest tightness and also right-sided chest his cane. The pain is moderate to severe. Significant pleuritic component. She did have a CT scan of the chest in December which I reviewed with her. It appears that the thick wall cavity is a little bit more filled then suggesting some growth. Is hard to know if the pain is related to that area or if the cough is related to that area at this time. Her HIV has been stable. Will plan to treated with antibiotics and also treat her asthma exacerbation with some prednisone. Will re-evaluate the cystic thick wall cavity area with a IV contrast CT scan to rule out sequestration. Will follow-up after her CT scan 08/25/2024 the patient is here for a pulmonary follow-up visit. The patient has been complaining of intermittent right-sided pain. Similar to the pleuritic pain that she has had for many years. But it seems to wax and wane. When it comes is very severe. She can barely breathe because of the severe pain. She did go to the ER back in June at [facility]. She apparently had a CT scan of the chest. I will request a report right now. The last CT scan we have available here is from 2022 where she had a CT scan demonstrating the cavitary lesion was present with some thickening rounded including the pleura likely resulting in the pleurisy. The patient has also gained some weight. She has diabetes now therefore we can not no longer give her high dose of the prednisone. She recently started on GLP1 receptor inhibitor. Hopefully this allows us to give a small dose of prednisone to help with the inflammation. Once we can review the CT scan we can see if additional interventions are required. 03/05/2025 the patient is here for pulmonary follow-up visit. Overall the patient has been doing well. She has recovered well after having the pain discomfort. We did review some CAT scans. She did have a CAT scan from [facility] from June 2024 demonstrating pneumonitis when she was sick with a viral syndrome most likely. We also looked at a CAT scan from your previous to that where she does have significant arthritis and degenerative changes to her back in addition to adjacent on the right hemithorax right lower lobe she does have the thick-walled cavity that she developed after a significant infection many years ago. This thick walled cavity sometimes gets filled and sometimes gets s uperinfected. But right now seems like she is doing okay. She does have some wheezing on exam and she has not been taking a Trelegy as prescribed. Therefore explained to her and emphasized the importance of taking the Trelegy daily. She is worried about her sugars but I did encourage him to take his since it is not too much inhaled steroids and should not affect her diabetes. If she develops any worsening symptoms she can always call. I will make sure she has all the inhalers available. If she develops any chest pains or any worsening respiratory symptoms she can always call for further recommendations. [facility] Medical History Vitamin D deficiency Diabetes GERD (gastroesophageal reflux disease) Anemia Depression Asthma-COPD overlap syndrome Asthma HIV (human immunodeficiency virus infection) Chest pain Cavitary lesion of lung RAMESH (obstructive sleep apnea) Social History Patient Tobacco Use Status: Never used Tobacco Review of Systems Const Reports daytime sleepiness, Reports fatigue, Reports snoring, Reports stops breathing during sleep and Reports weight gain Eyes Denies change in vision ENT Denies change in voice, Reports nasal congestion and Reports nasal discharge Card Denies palpitations and Denies dyspnea on exertion Resp Denies chest congestion, Reports cough, Denies hemoptysis, Denies pain on inspiration, Denies pain with cough, Denies dyspnea on exertion, Reports snoring and Denies wheezing GI Reports no additional complaints Musc Reports back pain Skin/Breast Denies rash Neuro Reports no additional complaints Endo Reports fatigue and Denies palpitations Aller/Immun Denies wheezing Physical Exam Vital Signs: Last Vital Signs Pulse 65 03/05/25 08:25 BP 110/56 L 03/05/25 08:25 Pulse Ox 98 03/05/25 08:25 Oxygen Delivery Method Room Air 03/05/25 08:25 BMI result Body Mass Index 29.3 Const General: alert Neck Neck: Yes supple Chest Chest palpation & inspection: normal inspection of the chest Resp Effort & Inspection: normal respiratory effort Auscultation: wheezes and diminished lung sounds Cardio Rate: regular rate Rhythm: regular rhythm Heart sounds: S1 normal heart sound present and S2 normal heart sound present GI Palpation (GI): Soft to palpation and nontender Auscultation: normal bowel sounds General: Yes CVA tenderness Back/Spine/Pelvis Back: CVA tenderness, No erythema, No warmth, No sacral edema and back tenderness Skin General skin exam: rashes and/or lesions noted Assessment & Plan Assessment & Plan (1) Cavitary lesion of lung: Code(s): J98.4 - Other disorders of lung Category: Medical (2) RAMESH (obstructive sleep apnea): Code(s): G47.33 - Obstructive sleep apnea (adult) (pediatric) Category: Medical (3) Asthma: Code(s): J45.909 - Unspecified asthma, uncomplicated Category: Medical Qualifiers: Asthma complication type: uncomplicated Asthma persistence: persistent Asthma severity: moderate Qualified Code(s): J45.40 - Moderate persistent asthma, uncomplicated Plan positional therapy for mild RAMESH, COnsider PAP therapy if no better continue Trelegy short-acting beta agonist as needed follow-up in 6-8 months Medications: Changed From albuterol sulfate 90 mcg/actuation (ProAir HFA) 2 puffs inhalation Q6H PRN To albuterol sulfate 90 mcg/actuation (ProAir HFA) 2 puffs inhalation Q6H PRN 8.5 grams 11RF shortness of breath or wheezing 30 days Refilled [id number] 200-62.5-25 mcg (Trelegy Ellipta) 1 ea inhalation DAILY 60 ea 12RF Coding Level of Care Code Est Pt Level 4 (85647) Complex EM visit Add On G2211 Diagnoses Cavitary lesion of lung J98.4 RAMESH (obstructive sleep apnea) G47.33 Moderate persistent asthma without complication J45.40 Asthma complication type: uncomplicated Asthma persistence: persistent Asthma severity: moderate Time Spent (min) 16
== END 2025-03-05 08:47 | disposition home or self-care (01) ==
LOC: HO.HPS 08:08
PROVIDERS: PCP Internal Medicine; Visit Provider Hospitalist
DX: J98.4 Other disorders of lung (principal); G47.33 Obstructive sleep apnea (adult) (pediatric); J45.40 Moderate persistent asthma, uncomplicated
CPT/HCPCS: 99214; G2211

== ENCOUNTER → 2025-03-05 08:07 | Outpatient (BNVA) | payer OTHER, SELFPAY | PROVIDERS: PCP Internal Medicine; Visit Provider Hospitalist | DX: J98.4 Other disorders of lung (principal); J45.40 Moderate persistent asthma, uncomplicated; G47.33 Obstructive sleep apnea (adult) (pediatric) | CPT/HCPCS: 99212 ==